=== PATIENT | male | born 1950 | race Caucasian/White ===

== ENCOUNTER 2017-01-14 11:34 | Observation (INO) | payer OTHER ==
[~2017-01-14] VITALS: Ht 185.4 cm; Wt 90.0 kg
[~2017-01-14 11:34] MED LIST: RANI150 PO
[2017-01-14 11:35] VITALS: BP 127/77; PULSE 98; RESP 20; TEMP 98.2; O2SAT 95
[2017-01-14 11:44] VITALS: O2SAT 96
--- NOTE | 2017-01-14 11:44 | PD ---
HPI Chief Complaint: cardiac complaint Time Seen by Provider: 11:44 Travel History International Travel<30 days: No Contact w/Intl Traveler<30days: No Traveled to known affect area: No History of Present Illness HPI 66-year-old male with history of cardiac disease with stent placement on April 2016, presents the emergency department with 15 minute episode of diaphoresis and nausea this morning at approximately 8 AM while attempting intercourse with his . Patient denies taking erectile dysfunction medications. He states currently he is pain-free, but feels somewhat lightheaded. Patient states he had no chest pain or tightness during this episode. He states similar symptoms when he had his first heart attack last year. 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 Venegas, and had a sestamibi stress test beginning of October which patient reports was read as normal. Patient takes an aspirin a day as well as Lipitor, and isosorbide. Patient also has a history of COPD for which she takes Spiriva, although the patient states he still occasionally has a cigarette. Patient has no known drug allergies. PFSH Past Medical History Hypertension: Yes Social History Alcohol Use: Yes (DAILY JUST A COUPLE) Tobacco Use: Yes (PACK TO A PACK AND A HALF DAILY) Allergies-Medications (Allergen,Severity, Reaction): Coded Allergies: No Known Allergies (Verified , 07/02/11) Reported Meds & Prescriptions Reported Meds & Active Scripts Active Reported Spiriva Handihaler (Tiotropium Inh) 18 Mcg Cap 18 Mcg INH DAILY 1 capsule = 18 mcg Brilinta (Ticagrelor) 60 Mg Tab 60 Mg PO BID Nitroglycerin SL (Nitroglycerin) 0.4 Mg Subl 0.4 Mg SL DIRECTED PRN ONE TABLET UNDER THE TONGUE NEEDED FOR CHEST PAIN, MAY REPEAT EVERY FIVE MINUTES FOR A TOTAL OF 3 DOSES OR CALL 911 IF NO RELIEF Metoprolol Succinate ER 24 HR (Metoprolol Succinate) 50 Mg Tab 50 Mg PO DAILY Isosorbide Mononitrate 10 Mg Tab 10 Mg PO BID Take 2 doses 7 hours apart. Losartan-Hydrochlorothiazide 50-12.5 Mg Tab 1 Tab PO DAILY Atorvastatin (Atorvastatin Calcium) 40 Mg Tab 40 Mg PO HS Aspirin 81 Mg Chew 81 Mg CHEW DAILY Ventolin Hfa 18 GM Inh (Albuterol Sulfate) 90 Mcg/Act Aer 2 Puff INH BID PRN Physical Exam Narrative GENERAL: Patient appears mildly anxious otherwise no acute distress. SKIN: Warm and dry. Normal color. Normal turgor. No diaphoresis currently. HEAD: Atraumatic. Normocephalic. EYES: Pupils equal and round. No scleral icterus. No injection or drainage. ENT: No nasal bleeding or discharge. Mucous membranes pink and moist. Pharynx is clear. NECK: Trachea midline. No JVD. Supple and nontender. CARDIOVASCULAR: Regular rate and rhythm. No murmurs gallops or rubs. RESPIRATORY: No accessory muscle use. Clear to auscultation. Breath sounds equal bilaterally. MUSCULOSKELETAL: Extremities without clubbing, cyanosis, or edema. No obvious deformities. NEUROLOGICAL: Awake and alert. No obvious cranial nerve deficits. Motor grossly within normal limits. Five out of 5 muscle strength in the arms and legs. Normal speech. PSYCHIATRIC: Appropriate mood and affect; insight and judgment normal. Data Data Last Documented VS Vital Signs Date Time Temp Pulse Resp B/P Pulse Ox O2 Delivery O2 Flow Rate FiO2 01/14/17 11:44 17 01/14/17 11:44 96 Room Air 01/14/17 11:35 98.2 98 127/77 Orders Electrocardiogram (01/14/17 ) Electrocardiogram (01/14/17 11:47) B-Type Natriuretic Peptide (01/14/17 11:47) Ckmb (Isoenzyme) Profile (01/14/17 11:47) Complete Blood Count With Diff (01/14/17 11:47) Comprehensive Metabolic Panel (01/14/17 11:47) Magnesium (Mg) (01/14/17 11:47) Prothrombin Time / Inr (Pt) (01/14/17 11:47) Act Partial Throm Time (Ptt) (01/14/17 11:47) Troponin I (01/14/17 11:47) Chest, Single Ap (01/14/17 11:47) Ecg Monitoring (01/14/17 11:47) Bilateral Bp Monitoring (01/14/17 11:47) Iv Access Insert/Monitor (01/14/17 11:47) Oximetry (01/14/17 11:47) Oxygen Administration (01/14/17 11:47) Aspirin Chew (Aspirin Chew) (01/14/17 12:00) Nitroglycerin 2% Oint (Nitroglycerin 2% (01/14/17 12:00) Sodium Chloride 0.9% Flush (Ns Flush) (01/14/17 12:00) Sodium Chlorid 0.9% 500 Ml Inj (Ns 500 M (01/14/17 12:00) Labs Laboratory Tests Test 01/14/17 12:00 White Blood Count 7.6 TH/MM3 Red Blood Count 4.10 MIL/MM3 Hemoglobin 14.8 GM/DL Hematocrit 43.3 % Mean Corpuscular Volume 105.5 FL Mean Corpuscular Hemoglobin 36.1 PG Mean Corpuscular Hemoglobin 34.2 % Concent Red Cell Distribution Width 13.4 % Platelet Count 115 TH/MM3 Mean Platelet Volume 8.3 FL Neutrophils (%) (Auto) 74.8 % Lymphocytes (%) (Auto) 16.7 % Monocytes (%) (Auto) 7.6 % Eosinophils (%) (Auto) 0.5 % Basophils (%) (Auto) 0.4 % Neutrophils # (Auto) 5.7 TH/MM3 Lymphocytes # (Auto) 1.3 TH/MM3 Monocytes # (Auto) 0.6 TH/MM3 Eosinophils # (Auto) 0.0 TH/MM3 Basophils # (Auto) 0.0 TH/MM3 CBC Comment DIFF FINAL Differential Comment Prothrombin Time 11.3 SEC Prothromb Time International 1.0 RATIO Ratio Activated Partial 23.6 SEC Thromboplast Time Sodium Level 139 MEQ/L Potassium Level 4.0 MEQ/L Chloride Level 102 MEQ/L Carbon Dioxide Level 27.1 MEQ/L Anion Gap 10 MEQ/L Blood Urea Nitrogen 17 MG/DL Creatinine 1.26 MG/DL Estimat Glomerular Filtration 57 ML/MIN Rate Random Glucose 138 MG/DL Calcium Level 9.7 MG/DL Magnesium Level 1.9 MG/DL Total Bilirubin 2.2 MG/DL Aspartate Amino Transf 54 U/L (AST/SGOT) Alanine Aminotransferase 63 U/L (ALT/SGPT) Alkaline Phosphatase 123 U/L Total Creatine Kinase 49 U/L Troponin I LESS THAN 0.02 NG/ML B-Type Natriuretic Peptide 17 PG/ML Total Protein 7.7 GM/DL Albumin 3.9 GM/DL [facility] Medical Decision Making Medical Screen Exam Complete: Yes Emergency Medical Condition: Yes Medical Record Reviewed: Yes Differential Diagnosis Near syncope event. Diaphoresis. Possible [place]. Possible cardiac syndrome. Narrative Course Patient is pain-free and appears medically stable at time of exam. Labs ordered including CMP, CBC, cardiac panel, proBNP, chest x-ray, and EKG. EKG shows diffuse ST depressions. This is reviewed with Dr. Weston. IV access is obtained and the patient is given 324 mg aspirin, as well as 1 inch 2% lidocaine paste topically. 1300 hrs. patient is reassessed and found to be stable and with no complaints. First set of labs are within normal limits. I discussed with the patient the recommendation to stay for the chest pain center to further evaluate his episode this morning. Patient agrees to be admitted into the chest pain center for observation and further evaluation. Orders for chest pain center admission are placed. Diagnosis Primary Impression: Atypical chest pain Admitting Information Admitting Physician Requests: Observation Condition: Stable Dimitrios Brewster January 14, 2017 11:44
[2017-01-14] MEDS ORDERED: METO50TA11 PO (11:51)
[2017-01-14] MEDS ORDERED: ATOR40TA16 PO (11:51)
[2017-01-14] MEDS ORDERED: SPIRCAP INH (11:51)
[2017-01-14] MEDS ORDERED: LOSA50TA2 PO (11:51)
[2017-01-14] MEDS ORDERED: VENTAER INH (11:51)
[2017-01-14] MEDS ORDERED: NITR1SUB3 SL (11:51)
[2017-01-14] MEDS ORDERED: ISOS10TA3 PO (11:51)
[2017-01-14] MEDS ORDERED: ASPI81CH CHEW (11:51)
[2017-01-14] MEDS ORDERED: TICA1TAB PO (11:51)
[2017-01-14] MEDS ORDERED: ASPIRIN 81 MG CHEW TAB PO ONE (12:00)
[2017-01-14] MEDS ORDERED: NITROGLYCERIN 2% OINT 1 GM PACKET TOP ONE (12:00)
[2017-01-14] MEDS ORDERED: SODIUM CHLORIDE 0.9% FLUSH 10 ML FLUSH IVF PRN (12:00)
[2017-01-14] MEDS ORDERED: SODIUM CHLORID 0.9% 500 ML INJ 500 ML IV ONE (12:00)
[2017-01-14 12:15] LABS: AUTOMATED NEUTROPHIL # 5.7 TH/MM3 (1.8-7.7); BASOPHIL % 0.4 % (0.0-2.0); EOSINOPHIL % 0.5 % (0.0-4.0); HEMATOCRIT 43.3 % (39.0-51.0); HEMO FLAGS DIFF FINAL; LYMPH % 16.7 % (9.0-44.0); LYMPHOCYTE # 1.3 TH/MM3 (1.0-4.8); MEAN CELL VOLUME 105.5 FL (80.0-100.0); MEAN CORPUSCULAR HEMOGLOBIN 36.1 PG (27.0-34.0); MEAN CORPUSCULAR HGB CONC 34.2 % (32.0-36.0); MONO % 7.6 % (0.0-8.0); NEUT % 74.8 % (16.0-70.0); PLATELET COUNT 115 TH/MM3 (150-450); RED CELL DISTRIBUTION WIDTH 13.4 % (11.6-17.2); WHITE BLOOD COUNT 7.6 TH/MM3 (4.0-11.0)
[2017-01-14 12:24] LABS: APTT (PATIENT) 23.6 SEC (24.3-30.1); PROTHROMBIN TIME - PATIENT 11.3 SEC (9.8-11.6)
[2017-01-14 12:36] LABS: ANION GAP 10 MEQ/L (5-15); AST (GOT) 54 U/L (15-37); BICARBONATE 27.1 MEQ/L (21.0-32.0); BLOOD UREA NITROGEN 17 MG/DL (7-18); CHLORIDE 102 MEQ/L (98-107); GLOMERULAR FILTRATION RATE 57 ML/MIN (>89); MAGNESIUM 1.9 MG/DL (1.5-2.5); SODIUM (NA) 139 MEQ/L (136-145)
[2017-01-14 12:41] LABS: ALKALINE PHOSPHATASE 123 U/L (45-117); ALT (GPT) 63 U/L (12-78); TOTAL BILIRUBIN ADULT 2.2 MG/DL (0.2-1.0)
--- NOTE | 2017-01-14 12:43 | RADRPT ---
EXAM DATE/TIME: 01/14/2017 12:18 [facility] COMPARISON: No previous studies available for comparison. INDICATIONS : Shortness of breath and nausea. MEDICAL HISTORY : Myocardial infarction. SURGICAL HISTORY : 1 Heart stent. ENCOUNTER: Initial ACUITY: 1 day PAIN SCORE: 0/10 LOCATION: Bilateral chest FINDINGS: Portable AP view of the chest demonstrates a normal-sized cardiac silhouette. No effusion, consolidat ion, or pneumothorax is visualized. The bones and soft tissues demonstrate no acute abnormality. EKG lines overlie the patient. CONCLUSION: No acute cardiopulmonary abnormality is identified. Mehul Santiago MD on January 14, 2017 at 12:40 Board Certified Radiologist. This report was verified electronically.
[2017-01-14 13:01] LABS: CREATINE KINASE 49 U/L (39-308)
--- NOTE | 2017-01-14 13:13 | PD ---
Data Data Last Documented VS Vital Signs Date Time Temp Pulse Resp B/P Pulse Ox O2 Delivery O2 Flow Rate FiO2 01/14/17 11:44 17 01/14/17 11:44 96 Room Air 01/14/17 11:35 98.2 98 127/77 Orders Electrocardiogram (01/14/17 ) Electrocardiogram (01/14/17 11:47) B-Type Natriuretic Peptide (01/14/17 11:47) Ckmb (Isoenzyme) Profile (01/14/17 11:47) Complete Blood Count With Diff (01/14/17 11:47) Comprehensive Metabolic Panel (01/14/17 11:47) Magnesium (Mg) (01/14/17 11:47) Prothrombin Time / Inr (Pt) (01/14/17 11:47) Act Partial Throm Time (Ptt) (01/14/17 11:47) Troponin I (01/14/17 11:47) Chest, Single Ap (01/14/17 11:47) Ecg Monitoring (01/14/17 11:47) Bilateral Bp Monitoring (01/14/17 11:47) Iv Access Insert/Monitor (01/14/17 11:47) Oximetry (01/14/17 11:47) Oxygen Administration (01/14/17 11:47) Aspirin Chew (Aspirin Chew) (01/14/17 12:00) Nitroglycerin 2% Oint (Nitroglycerin 2% (01/14/17 12:00) Sodium Chloride 0.9% Flush (Ns Flush) (01/14/17 12:00) Sodium Chlorid 0.9% 500 Ml Inj (Ns 500 M (01/14/17 12:00) Labs Laboratory Tests Test 01/14/17 12:00 White Blood Count 7.6 TH/MM3 Red Blood Count 4.10 MIL/MM3 Hemoglobin 14.8 GM/DL Hematocrit 43.3 % Mean Corpuscular Volume 105.5 FL Mean Corpuscular Hemoglobin 36.1 PG Mean Corpuscular Hemoglobin 34.2 % Concent Red Cell Distribution Width 13.4 % Platelet Count 115 TH/MM3 Mean Platelet Volume 8.3 FL Neutrophils (%) (Auto) 74.8 % Lymphocytes (%) (Auto) 16.7 % Monocytes (%) (Auto) 7.6 % Eosinophils (%) (Auto) 0.5 % Basophils (%) (Auto) 0.4 % Neutrophils # (Auto) 5.7 TH/MM3 Lymphocytes # (Auto) 1.3 TH/MM3 Monocytes # (Auto) 0.6 TH/MM3 Eosinophils # (Auto) 0.0 TH/MM3 Basophils # (Auto) 0.0 TH/MM3 CBC Comment DIFF FINAL Differential Comment Prothrombin Time 11.3 SEC Prothromb Time International 1.0 RATIO Ratio Activated Partial 23.6 SEC Thromboplast Time Sodium Level 139 MEQ/L Potassium Level 4.0 MEQ/L Chloride Level 102 MEQ/L Carbon Dioxide Level 27.1 MEQ/L Anion Gap 10 MEQ/L Blood Urea Nitrogen 17 MG/DL Creatinine 1.26 MG/DL Estimat Glomerular Filtration 57 ML/MIN Rate Random Glucose 138 MG/DL Calcium Level 9.7 MG/DL Magnesium Level 1.9 MG/DL Total Bilirubin 2.2 MG/DL Aspartate Amino Transf 54 U/L (AST/SGOT) Alanine Aminotransferase 63 U/L (ALT/SGPT) Alkaline Phosphatase 123 U/L Total Creatine Kinase 49 U/L Troponin I LESS THAN 0.02 NG/ML B-Type Natriuretic Peptide 17 PG/ML Total Protein 7.7 GM/DL Albumin 3.9 GM/DL MDM Supervised Visit with JOSE: Yes Narrative Course The history, exam, and medical decision-making in the associated mid-level provider note were completed with my assistance. I reviewed and agree with the findings presented. I attest that I had a [id number] encounter with the patient on the same day, and personally performed and documented my assessment and findings in the medical record. *My assessment and Findings: 66-year-old man, acute onset nausea and diaphoresis during sex today. He had [place] with previous similar symptoms. No chest pain. No syncope. Improved now. Initial workups unremarkable. Last stress test was in October of this year with Dr. Grossman. We'll plan on admission to chest pain Center for serial cardiac enzymes, provocative testing at their discretion. Diagnosis Primary Impression: Atypical chest pain Condition: Stable Isauro Weston MD January 14, 2017 13:13
[2017-01-14] MEDS ORDERED: SODIUM CHLORIDE 0.9% FLUSH 5 ML FLUSH IVF PRN (14:15)
--- NOTE | 2017-01-14 14:29 | HHI.HP ---
[facility] Primary Care Physician Joe Escobar M.D. Chief Complaint Nausea and diaphoresis History of Present Illness This is a 66-year-old male with history of CAD requiring stenting April 2016 while in [facility]. He presents today with a complaint of nausea and diaphoresis while having intercourse with his . He states that his symptoms resolved about 10 minutes after stopping intercourse. He denies taking any medications for erectile dysfunction. He is concerned stating " these are the same symptoms I had when I had a heart attack." He called 911 and was brought to the ED. Symptoms have not recurred. He follows Dr. Grossman of cardiology. States he had a chemical stress test 2 months ago and was told that it was normal. 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 He states he has not had these symptoms since getting the stent in April. Patient continues to smoke cigarettes. He does voice compliance with all his medications including brillanta. Currently asymptomatic. Denies abdominal pain or vomiting. Review of Systems General: Patient denies fevers, chills recent, and recent travel HEENT: Patient denies headache, sore throat, difficulty swallowing. Cardiovascular: Denies chest discomfort but voices the symptoms of diaphoresis and nausea that were similar to when eating his stent April 2016. Denies sensation of heart beating rapidly or irregularly. No syncope. There was diaphoresis. Respiratory: He was a little short of breath. Denies inspirational chest discomfort. Denies coughing wheezing or hemoptysis. GI: He was nauseous. Patient denies vomiting, diarrhea, abdominal pain, bloody stools. Musculoskeletal: Patient denies joint pain or edema. Denies calf pain or edema. Neurovascular: Patient denies numbness, tingling, weakness in extremities. Denies headache. Endocrine: Denies polyuria and polydipsia. Hematologic: Denies easy bruising. Skin: Denies rash or itching. Past Family Social History Allergies: Coded Allergies: No Known Allergies (Verified , 07/02/11) Past Medical History Coronary artery disease with stenting April 2016 in [facility]. It sounds as if he was a STEMI alert as he went emergently to the [facility] from the ED. Hypertension, hyperlipidemia, tobacco abuse. Denies diabetes. Past Surgical History Cardiac catheterization April 2016 with stent. Knee surgery. Reported Medications Reported Meds & Active Scripts Active Reported Spiriva Handihaler (Tiotropium Inh) 18 Mcg Cap 18 Mcg INH DAILY 1 capsule = 18 mcg Brilinta (Ticagrelor) 60 Mg Tab 60 Mg PO BID Nitroglycerin SL (Nitroglycerin) 0.4 Mg Subl 0.4 Mg SL DIRECTED PRN ONE TABLET UNDER THE TONGUE NEEDED FOR CHEST PAIN, MAY REPEAT EVERY FIVE MINUTES FOR A TOTAL OF 3 DOSES OR CALL 911 IF NO RELIEF Metoprolol Succinate ER 24 HR (Metoprolol Succinate) 50 Mg Tab 50 Mg PO DAILY Isosorbide Mononitrate 10 Mg Tab 10 Mg PO BID Take 2 doses 7 hours apart. Losartan-Hydrochlorothiazide 50-12.5 Mg Tab 1 Tab PO DAILY Atorvastatin (Atorvastatin Calcium) 40 Mg Tab 40 Mg PO HS Aspirin 81 Mg Chew 81 Mg CHEW DAILY Ventolin Hfa 18 GM Inh (Albuterol Sulfate) 90 Mcg/Act Aer 2 Puff INH BID PRN Active Ordered Medications Current Medications Medications (Trade) Dose Ordered Sig/Blanca Route Start Time Stop Time Status Last Admin (NS Flush) 2 ml UNSCH PRN IVF 01/14/17 12:00 (Lipitor) 40 mg HS PO 01/14/17 21:00 (Toprol Xl) 50 mg DAILY PO 01/14/17 14:00 (Cozaar) 50 mg DAILY PO 01/14/17 15:00 (Microzide) 12.5 mg DAILY PO 01/14/17 15:00 (NS Flush) 2 ml UNSCH PRN IVF 01/14/17 14:15 UNV (NS Flush) 2 ml BID IVF 01/14/17 21:00 UNV (Tylenol) 500 mg Q4H PRN PO 01/14/17 14:15 UNV ([place] 7.5-325 Mg) 1 tab Q4H PRN PO 01/14/17 14:15 UNV (Zofran Inj) 4 mg Q6H PRN IV 01/14/17 14:15 UNV (Protonix) 40 mg DAILY PO 01/14/17 14:15 UNV (Aspirin) 325 mg DAILY PO 01/15/17 09:00 UNV (Xanax) 0.25 mg Q8H PRN PO 01/14/17 14:15 UNV Family History Denies family history of CAD. Social History Patient continues to smoke. He has been smoking one half pack of cigarettes daily for the last 5 months but prior that he is smoking 1-1/2 pack of cigarettes daily for 40 years. He drinks 3-4 cups of bourbon daily. Denies illicit drugs. He has been for 44 years. Physical Exam Vital Signs Vital Signs Date Time Temp Pulse Resp B/P Pulse Ox O2 Delivery O2 Flow Rate FiO2 01/14/17 11:44 17 01/14/17 11:44 96 Room Air 01/14/17 11:44 96 Room Air 01/14/17 11:35 98.2 98 20 127/77 95 Room Air Physical Exam GENERAL: This is a well-nourished, well-developed patient, in no apparent distress. Patient speaks in clear complete sentences. Patient is pleasant. HEENT: Head is atraumatic and normocephalic. Neck is supple without lymphadenopathy and trachea is midline. No JVD or carotid bruits. CARDIOVASCULAR: Regular rate and rhythm without murmurs, gallops, or rubs. RESPIRATORY: Clear to auscultation. Breath sounds equal bilaterally. No wheezes , rales, or rhonchi. Chest wall is nontender. No use of accessory muscles. GASTROINTESTINAL: Abdomen is nontender, nondistended. Abdomen soft. No obvious pulsatile mass or bruit. No CVA tenderness. Strong femoral pulses bilaterally. Normal bowel sounds in all quadrants. MUSCULOSKELETAL: Patient is moving upper and lower extremities freely. No calf tenderness or edema, no Homans sign. Strong pulses in upper and lower extremities. NEUROLOGICAL: Patient is alert and oriented. Cranial nerves 2-12 are grossly intact. No focal deficits and speech is clear. SKIN: No rash and turgor is normal. Laboratory Laboratory Tests Test 01/14/17 12:00 White Blood Count 7.6 Red Blood Count 4.10 Hemoglobin 14.8 Hematocrit 43.3 Mean Corpuscular Volume 105.5 Mean Corpuscular Hemoglobin 36.1 Mean Corpuscular Hemoglobin 34.2 Concent Red Cell Distribution Width 13.4 Platelet Count 115 Mean Platelet Volume 8.3 Neutrophils (%) (Auto) 74.8 Lymphocytes (%) (Auto) 16.7 Monocytes (%) (Auto) 7.6 Eosinophils (%) (Auto) 0.5 Basophils (%) (Auto) 0.4 Neutrophils # (Auto) 5.7 Lymphocytes # (Auto) 1.3 Monocytes # (Auto) 0.6 Eosinophils # (Auto) 0.0 Basophils # (Auto) 0.0 CBC Comment DIFF FINAL Differential Comment Prothrombin Time 11.3 Prothromb Time International 1.0 Ratio Activated Partial 23.6 Thromboplast Time Sodium Level 139 Potassium Level 4.0 Chloride Level 102 Carbon Dioxide Level 27.1 Anion Gap 10 Blood Urea Nitrogen 17 Creatinine 1.26 Estimat Glomerular Filtration 57 Rate Random Glucose 138 Calcium Level 9.7 Magnesium Level 1.9 Total Bilirubin 2.2 Aspartate Amino Transf 54 (AST/SGOT) Alanine Aminotransferase 63 (ALT/SGPT) Alkaline Phosphatase 123 Total Creatine Kinase 49 Troponin I LESS THAN 0.02 B-Type Natriuretic Peptide 17 Total Protein 7.7 Albumin 3.9 Result Diagram: 01/14/17 1200 01/14/17 1200 Imaging Last Impressions Chest X-Ray 01/14/17 1147 Signed Impressions: Service Date/Time: Saturday, January 14, 2017 12:18 - CONCLUSION: No acute cardiopulmonary abnormality is identified. Mehul Santiago MD Course Initial EKG is sinus rhythm with nonspecific ST depressions inferiorly and laterally. Assessment and Plan Assessment and Plan * Possible angina equivalent: Patient presents to ED with symptoms that he states are similar to when eating stenting in April 2016. He will have serial cardiac enzymes and EKGs for ruling out purposes. We will resume his medications. Will apply Nitrol ointment. He will be seen by Dr. Macario Fisher and at that time further plan will be determined. * CAD: This will be reassessed this visit. He will need to follow-up with Dr. Grossman. * Hypertension: Continue current medication. * Hyperlipidemia: Continue current medication. * Tobacco abuse: Patient has been counseled on the importance of smoking cessation. Patient is agreeable to this plan. Sergio Stapleton January 14, 2017 14:29
[2017-01-14 14:37] VITALS: BP 122/64; PULSE 79; RESP 16; TEMP 98.1; O2SAT 95
[2017-01-14] MEDS ORDERED: ONDANSETRON HCL 4 MG/2 ML VIAL IV PRN (15:00)
[2017-01-14] MEDS ORDERED: ACETAMINOPHEN/HYDROcodone 325 MG/7.5 MG TAB PO PRN (15:00)
[2017-01-14] MEDS ORDERED: ACETAMINOPHEN 500 MG CPLT PO PRN (15:00)
[2017-01-14] MEDS ORDERED: ALPRAZolam 0.25 MG TAB PO PRN (15:00)
[2017-01-14 16:14] LABS: CREATINE KINASE 40 U/L (39-308)
[2017-01-14] MEDS ORDERED: ISOS30TA3 PO (16:40)
[2017-01-14] MEDS: METOPROLOL SUCCINATE 50 MG EXTENDED RELEASE TAB PO SCH (16:44)
[2017-01-14] MEDS: HYDROCHLOROTHIAZIDE 12.5 MG CAP PO SCH (16:44)
[2017-01-14] MEDS: PANTOPRAZOLE SOD 40 MG DELAYED RELEASE TAB PO SCH (16:45)
[2017-01-14] MEDS: LOSARTAN 50 MG TAB PO SCH (16:45)
[2017-01-14] MEDS ORDERED: RESP: ALBUTEROL 2.5 MG/IPRATROPIUM 0.5 MG NEB (PRN) INH (17:00)
[2017-01-14 17:18] VITALS: PULSE 68
[2017-01-14] MEDS: NITROGLYCERIN 2% OINT 1 GM PACKET TOPICAL SCH (18:15)
[2017-01-14 18:49] LABS: CREATINE KINASE 39 U/L (39-308)
[2017-01-14 20:12] VITALS: BP 129/68; PULSE 62; RESP 18; TEMP 98.1; O2SAT 97
[2017-01-14] MEDS: TICAGRELOR 60 MG TAB PO SCH (20:15)
[2017-01-14] MEDS: ISOSORBIDE MONONITRATE 30 MG TAB PO SCH (20:18)
[2017-01-14 20:20] VITALS: PULSE 65
[2017-01-14] MEDS ORDERED: ATORVASTATIN 40 MG TAB PO SCH (21:00)
[2017-01-14] MEDS ORDERED: SODIUM CHLORIDE 0.9% FLUSH 5 ML FLUSH IVF SCH (21:00)
[2017-01-15 00:08] VITALS: BP 109/72; PULSE 63; RESP 20; TEMP 97.8; O2SAT 95
[2017-01-15] MEDS: NITROGLYCERIN 2% OINT 1 GM PACKET TOPICAL SCH ×2 (00:14→06:24)
[2017-01-15 04:32] VITALS: BP 106/63; PULSE 61; RESP 20; TEMP 97.8; O2SAT 94
[2017-01-15 07:06] VITALS: O2SAT 96
[2017-01-15 07:25] VITALS: BP 111/75; PULSE 62; RESP 18; TEMP 98.1; O2SAT 96
[2017-01-15 08:00] VITALS: PULSE 68
--- NOTE | 2017-01-15 08:05 | EKG ---
Date Performed: 01/14/2017 Time Performed: 15:06:04 PTAGE: 66 years EKG: Sinus rhythm NORMAL ECG Since PREVIOUS TRACING , no significant change noted PREVIOUS TRACIN01/14/2017 11.44 DOCTOR: Tabitha Mohan Interpretating Date/Time 01/15/2017 08:04:01
--- NOTE | 2017-01-15 08:05 | EKG ---
Date Performed: 01/14/2017 Time Performed: 18:03:59 PTAGE: 66 years EKG: Sinus rhythm NORMAL ECG Since PREVIOUS TRACING , no significant change noted PREVIOUS TRACIN01/14/2017 15.06 DOCTOR: Tabitha Mohan Interpretating Date/Time 01/15/2017 08:03:38
--- NOTE | 2017-01-15 08:06 | EKG ---
Date Performed: 01/14/2017 Time Performed: 11:44:01 PTAGE: 66 years EKG: Sinus rhythm MINIMAL ST DEPRESSION BORDERLINE ECG Since PREVIOUS TRACING , no significant change noted PREVIOUS TRACIN07/02/2011 20.02 DOCTOR: Tabitha Mohan Interpretating Date/Time 01/15/2017 08:04:43
[2017-01-15] MEDS ORDERED: ASPIRIN 325 MG TAB PO SCH (09:00)
--- NOTE | 2017-01-15 11:05 | RADRPT ---
EXAM DATE/TIME: 01/15/2017 08:59 [facility] COMPARISON: No previous studies available for comparison. INDICATIONS : Angina Coronary artery bypass graft. DOSE: 25.8 mCi Tc99m Myoview at stress 8.7 mCi Tc99m Myoview at rest REST HEART RATE: 84 BPM TARGET HEART RATE: 131 BPM MAX HEART RATE: 124 BPM REST BLOOD PRESSURE: 118/78 mmHg MAX BLOOD PRESSURE: 138/80 mmHg EJECTION FRACTION: 54% MEDICAL HISTORY : Hypertension. Myocardial infarction. Current smoker. SURGICAL HISTORY : Coronary artery stent. Right shoulder and knee surgery. ENCOUNTER: Initial ACUITY: 1 day PAIN SCALE: 3/10 LOCATION: Bilateral chest TECHNIQUE: The patient underwent upright treadmill exercise in the chest pain center. Continuous ECG tracing wa s monitored during stress. Gated SPECT imaging was performed after stress, and conventional SPECT im aging was performed at rest. The examination was performed on a SPECT/CT scanner, both attenuation-c orrected and non-corrected datasets were reviewed. FINDINGS: DISTRIBUTION: The maximum perfused segment at stress is in the lateral wall. PERFUSION STUDY: The pattern of perfusion at stress is within normal limits. GATED STUDY: There is intact wall motion and thickening without hypokinetic or dyskinetic segments. CONCLUSION: Unremarkable myocardial perfusion examination. RISK CATEGORY: Low Calderon Ruiz MD on January 15, 2017 at 11:02 Board Certified Radiologist. This report was verified electronically.
[2017-01-15] MEDS: TICAGRELOR 60 MG TAB PO SCH (11:32)
[2017-01-15] MEDS: LOSARTAN 50 MG TAB PO SCH (11:32)
[2017-01-15] MEDS: HYDROCHLOROTHIAZIDE 12.5 MG CAP PO SCH (11:33)
[2017-01-15] MEDS: ISOSORBIDE MONONITRATE 30 MG TAB PO SCH (11:33)
--- NOTE | 2017-01-15 11:33 | HHI.DCPOC ---
Discharge Care Plan Diagnosis: (1) Atypical chest pain (2) Tobacco abuse (3) Hx of coronary artery disease Goals to Promote Your Health * To prevent worsening of your condition and complications * To maintain your health at the optimal level Directions to Meet Your Goals Take your medications as prescribed Follow your dietary instruction Follow activity as directed Keep your appointments as scheduled Take your immunizations and boosters as scheduled If your symptoms worsen call your PCP, if no PCP go to Urgent Care Center or Emergency Room Smoking is Dangerous to Your Health. Avoid second hand smoke Call the 24-hour hour crisis hotline for domestic abuse at Danii Barros January 15, 2017 11:33
[2017-01-15] MEDS: METOPROLOL SUCCINATE 50 MG EXTENDED RELEASE TAB PO SCH (11:46)
[2017-01-15] MEDS: PANTOPRAZOLE SOD 40 MG DELAYED RELEASE TAB PO SCH (11:47)
--- NOTE | 2017-01-15 15:15 | TR ---
Date Performed: 01/15/2017 Time Performed: 09:43:40 DOCTOR: Tabitha Mohan DRUG LIST: CLINICAL HISTORY: ATYPICAL CHEST PAIN REASON FOR TEST: REASON FOR ENDING: OBSERVATION: CONCLUSION: Modified gurpreet protocol. Stopped sec to leg fatigue and shortness of breath. Maximu m OI=426 Max HR Achieved=81.0% Total Exercise Time=6:02 Max BP 138/80. No reprod chest discomfort. R are PVC. No st t segment changes to sugg ischemia. Normal bp response. Fair exerice tolerance. Recove ry quick and unremarkable. Nuclear images pending. COMMENTS:
== END 2017-01-15 12:00 | disposition home or self-care (01) ==
LOC: NEPC 11:34 → NEDA 13:13 → NEPHCDU 14:34
PROVIDERS: ADMIT Internal Medicine Cardiovascular Disease; ATTEND Internal Medicine Cardiovascular Disease
DX: R07.89 Other chest pain (principal); R11.0 Nausea; R61 Generalized hyperhidrosis; R42 Dizziness and giddiness; R06.02 Shortness of breath; I20.9 Angina pectoris, unspecified; I10 Essential (primary) hypertension; I25.10 Atherosclerotic heart disease of native coronary artery without angina pectoris; E78.5 Hyperlipidemia, unspecified; J44.9 Chronic obstructive pulmonary disease, unspecified; F17.210 Nicotine dependence, cigarettes, uncomplicated; Z95.5 Presence of coronary angioplasty implant and graft; Z79.82 Long term (current) use of aspirin; Z79.899 Other long term (current) drug therapy
CPT/HCPCS: 71010; 78452; 80053; 82550; 83735; 83880; 84484; 85025; 85610; 85730; 93005; 93017; 96360; 99285; A9502; G0378; J7040

== ENCOUNTER 2018-10-09 22:25 | Inpatient (IN) ==
[2018-10-09] MEDS ORDERED: Sod Chloride 0.9% Inj 1,000 ML IV.SIG ONE (22:55)
[2018-10-09] MEDS ORDERED: Pantoprazole Inj 40 MG Vial IV.PUSH ONE (22:55)
[2018-10-09] MEDS ORDERED: Famotidine PF Inj 20 MG/2 ML Vial IV.PUSH ONE (22:55)
[2018-10-09] MEDS ORDERED: Tetanus/Diphtheria Toxoid Adult Vaccine Inj 0.5 ML Vial IM ONE (23:03)
--- NOTE | 2018-10-09 23:13 | ED ---
HPI General Chief Complaint: Syncope Stated Complaint: BP Complaint Time Seen by Provider: 10/09/18 22:42 Source: patient Mode of arrival: ambulatory Limitations: no limitations History of Present Illness HPI narrative: 68-year-old male with PMH of HLD, HTN, COPD, IA status post stenting presents to the ED via EMS after syncopal episode approximately 20 minutes before arrival. His is at bedside, observe the event and states that the patient looked confused, become unresponsive, slumped out of his chair and hit his head on the ground. She states that within 40 seconds to a minute he was sitting up and responding though seemed dazed. Patient states that he has been feeling dizzy and has been dyspneic on exertion for the last few days. He states that he has had black stools for the last 2 days. He states that he drinks alcohol daily, endorses 3-4 drinks tonight. He denies any preceding palpitations, chest pain, shortness of breath, nausea or vomiting. He denies history of GI bleed. He states that he had a colonoscopy within the last year. He does not take any blood thinners. He is unsure the date of his last tetanus immunization. On presentation he complains of neck and back pain, diffuse, rated 7/10, worsened by touch and certain motions. He denies abdominal pain, limitations to range of motion of the extremities. Patient is agreeable to blood transfusion should that be necessary. No treatment attempted before arrival. Related Data Home Medications Medication Instructions Recorded Confirmed albuterol sulfate 2 puff INHALATION QID 09/01/18 10/09/18 aspirin 81 mg PO DAILY 09/01/18 10/09/18 atorvastatin 40 mg PO QPM 09/01/18 10/09/18 isosorbide mononitrate 60 mg PO QAM 09/01/18 10/09/18 losartan-hydrochlorothiazide 1 tab PO DAILY 09/01/18 10/09/18 metoprolol tartrate 12.5 mg PO DAILY 09/01/18 10/09/18 tiotropium bromide 1 cap INHALATION DAILY 09/01/18 10/09/18 Allergies Allergy/AdvReac Type Severity Reaction Status Date / Time No Known Allergies Allergy Verified 10/09/18 22:33 Review of Systems ROS: all other systems reviewed are negative [facility] Family History Family History Other No cardiac disease Social History Social History Substance History: No History of Abuse Second Hand Smoke Exposure: No Smoking Status: Never smoker How Often Do You Have a Drink Containing Alcohol: 4 or more times a week Recent Travel in [facility] within the Last 8 Weeks: No Recent Out of Country Travel within the Last 8 Weeks: No Immunization History Tetanus Immunization: >5 Years Exam Narrative Exam Narrative: GENERAL: Well-nourished, well-developed white male in no acute distress. Sitting up in the stretcher. GCS 15. A and O x3. SKIN: Warm and dry. 1 cm laceration in the right eyebrow. No active bleeding. Thorough evaluation reveals no other edema, ecchymosis, abrasion, or laceration of the skin. HEAD: Normocephalic. Atraumatic. No raccoon eyes or ariza sign. No tenderness to palpation of the skull. No bony step-offs. No malocclusion of the teeth. EYES: No scleral icterus. No injection or drainage. PERRLA. EOMI. ENT: Pearly noe tympanic membrane is bilaterally. Nasal mucosa is moist. Oropharynx without erythema, edema or exudate. NECK: Supple, trachea midline. No JVD or lymphadenopathy. No midline tenderness to palpation. Patient retains full, active, painless range of motion of the neck. CARDIOVASCULAR: Regular rate and rhythm without murmurs, gallops, or rubs. 2+ DP and radial pulses bilaterally. RESPIRATORY: Breath sounds clear and equal bilaterally. No accessory muscle use. GASTROINTESTINAL: Abdomen soft, non-tender, nondistended. No palpable masses. + Bowel sounds RECTAL EXAM: No masses or tenderness, stool is black, guaiac positive. MUSCULOSKELETAL: No cyanosis, or edema. No tenderness to palpation or limitations to range of motion of the joints of the upper and lower extremities bilaterally. NEUROLOGICAL: Awake and alert. Cranial nerves II through XII intact. Motor and sensory grossly within normal limits. 5/5 muscle strength in all muscle groups. Normal speech. BACK: Nontender without obvious deformity. No CVA tenderness. No midline tenderness. Procedures Hemaprompt Stool Procedural Steps Taken: specimen placed in appropriate test area and controls appropriately positive and negative Hemaprompt Stool Result: positive Additional Comments: Stool is frankly melanotic Laceration Laceration 1: Site: face Side (If applicable): left Size (cm): 1 Description: linear Depth: simple, single layer Pre-repair:: wound explored, irrigated extensively and deep structures intact Skin layer closed with: dermabond Course Initial Documented Vital Signs Pulse Rate 80 10/09/18 22:33 Respiratory Rate 20 10/09/18 22:33 Blood Pressure 103/51 L 10/09/18 22:33 Pulse Oximetry 100 10/09/18 22:33 Last Documented Vital Signs Pulse Rate 81 10/10/18 00:49 Respiratory Rate 24 10/10/18 00:49 Blood Pressure 102/53 L 10/10/18 00:49 Pulse Oximetry 98 10/10/18 00:49 Medical Decision Making JOSE Attestation JOSE supervised visit: Yes Attestation: I, Dr. Blanco, have reviewed the advance practice practitioner's documentation and am in agreement, met with the patient face to face, made the diagnosis, and the medical decision making was done by me. *My assessment and Findings: 68 yo M with GI bleed arrives following syncope episode. pmh includes cad, htn, hld, copd. pt assessed at 0100AM. found to be resting comfortably. results of work up discussed with patient. GENERAL: Well-nourished well-developed 68-year-old male no acute distress resting comfortably SKIN: Focused skin assessment warm/dry. HEAD: Atraumatic. Normocephalic. EYES: Pupils equal and round. No scleral icterus. No injection or drainage. ENT: No nasal bleeding or discharge. Mucous membranes pink and moist. NECK: Trachea midline. No JVD. CARDIOVASCULAR: Regular rhythm. Rate approximately 80. RESPIRATORY: Speaking clear sentences. Respiratory rate 24 NEUROLOGICAL: Awake and alert. No obvious cranial nerve deficits. Motor grossly within normal limits. Normal speech. PSYCHIATRIC: Appropriate mood and affect; insight and judgment normal. Hb 13.0 in August and 11.9 on today's BUN/Cr approx 50/1.5 Pt guaiac positive pt reports that dr jo moss [facility] is pt's gi md, colonoscopy was done in may 2018. pt requests records be obtained we'll get pt's signature in ed. MDM Narrative Medical decision making narrative: 68-year-old male with PMH HTN presents the ED for evaluation after syncopal episode. is at bedside and witnessed the episode. States loss of consciousness was brief. BP 103/51. Patient's alert, oriented, no focal neuro deficits, small laceration in the right eyebrow, abdominal exam unremarkable, frankly melanotic stools on exam. IV was established. Patient was administered Protonix bolus and drip. Tetanus immunization was updated. EKG without acute findings. CBC shows hemoglobin of 11.9, MCV 109.6. INR 1.2. CMP and tox screen pending. Plan to admit. Patient 's agreeable. Please see medicine notes for disposition. Medical Screen Exam Complete: Yes Emergency Medical Condition: Yes Differential Diagnosis Differential Diagnosis: GI bleed versus anemia versus need for tetanus immunization versus laceration versus contusion versus other Lab Data Result diagrams: 10/09/18 23:00 10/09/18 23:00 Lab Results 10/09/18 10/09/18 10/09/18 Range/Units 23:00 23:00 23:00 WBC 9.0 (4.0-11.0) th/mm3 RBC 3.18 L (4.50-5.90) mil/mm3 Hgb 11.9 L (13.0-17.0) gm/dL Hct 34.8 L (39.0-51.0) % MCV 109.6 H (80.0-100.0) fL MCH 37.3 H (27.0-34.0) pg MCHC 34.1 (32.0-36.0) % RDW 13.5 (11.6-17.2) % Plt Count 157 (150-450) th/mm3 MPV 8.5 (7.0-11.0) fL Neut % (Auto) 66.1 (16.0-70.0) % Lymph % (Auto) 24.8 (9.0-44.0) % Sheridan % (Auto) 7.7 (0.0-8.0) % Eos % (Auto) 0.7 (0.0-4.0) % Baso % (Auto) 0.7 (0.0-2.0) % Neut # (Auto) 6.0 (1.8-7.7) th/mm3 Lymph # (Auto) 2.2 (1.0-4.8) th/mm3 [place] # (Auto) 0.7 (0.0-0.9) th/mm3 Eos # (Auto) 0.1 (0.0-0.4) th/mm3 Baso # (Auto) 0.1 (0.0-0.2) th/mm3 WBC Differential . Differential Comment Auto diff final PT 11.9 H (9.8-11.6) sec INR 1.2 Ratio APTT 19.5 L (23.4-31.7) sec Sodium 140 (136-145) meq/L Potassium 3.6 (3.5-5.1) meq/L Chloride 105 (98-107) meq/L Carbon Dioxide 22.2 (21.0-32.0) meq/L Anion Gap 13 (5-15) meq/L BUN 51 H (7-18) mg/dL Creatinine 1.56 H (0.60-1.30) mg/dL Estimated GFR 44 L (>89) mL/min Random Glucose 88 (74-106) mg/dL Calcium 8.0 L (8.5-10.1) mg/dL Total Bilirubin 0.8 (0.2-1.0) mg/dL AST 38 H (15-37) U/L ALT 36 (12-78) U/L Alkaline Phosphatase 80 (45-117) U/L Troponin I (0.02-0.05) ng/mL Total Protein 6.3 L (6.4-8.2) g/dL Albumin 3.3 L (3.4-5.0) g/dL Lipase 168 (73-393) U/L Serum Alcohol 139 H (0-5) mg/dL Blood Type Blood Type Recheck Antibody Screen 10/09/18 10/09/18 Range/Units 23:00 23:00 WBC (4.0-11.0) th/mm3 RBC (4.50-5.90) mil/mm3 Hgb (13.0-17.0) gm/dL Hct (39.0-51.0) % MCV (80.0-100.0) fL MCH (27.0-34.0) pg MCHC (32.0-36.0) % RDW (11.6-17.2) % Plt Count (150-450) th/mm3 MPV (7.0-11.0) fL Neut % (Auto) (16.0-70.0) % Lymph % (Auto) (9.0-44.0) % [place]idan % (Auto) (0.0-8.0) % Eos % (Auto) (0.0-4.0) % Baso % (Auto) (0.0-2.0) % Neut # (Auto) (1.8-7.7) th/mm3 Lymph # (Auto) (1.0-4.8) th/mm3 [place]idan # (Auto) (0.0-0.9) th/mm3 Eos # (Auto) (0.0-0.4) th/mm3 Baso # (Auto) (0.0-0.2) th/mm3 WBC Differential Differential Comment PT (9.8-11.6) sec INR Ratio APTT (23.4-31.7) sec Sodium (136-145) meq/L Potassium (3.5-5.1) meq/L Chloride (98-107) meq/L Carbon Dioxide (21.0-32.0) meq/L Anion Gap (5-15) meq/L BUN (7-18) mg/dL Creatinine (0.60-1.30) mg/dL Estimated GFR (>89) mL/min Random Glucose (74-106) mg/dL Calcium (8.5-10.1) mg/dL Total Bilirubin (0.2-1.0) mg/dL AST (15-37) U/L ALT (12-78) U/L Alkaline Phosphatase (45-117) U/L Troponin I Less than 0.02 L (0.02-0.05) ng/mL Total Protein (6.4-8.2) g/dL Albumin (3.4-5.0) g/dL Lipase (73-393) U/L Serum Alcohol (0-5) mg/dL Blood Type A Positive Blood Type Recheck Required Antibody Screen Negative Imaging Data Radiologist's impression: Cervical Spine CT 10/09/18 23:03 CONCLUSION: 1. No fracture or dislocation. 2. Mild degenerative changes. 3. Calcified plaque involving the carotid arteries. Head CT 10/09/18 23:03 CONCLUSION: 1. No acute intracranial abnormality. . . ECG Data EKG Prior to Arrival: No Attestation: I personally reviewed and interpreted this ECG as follows: Interpretation: Rate 81, sinus rhythm. No acute ST changes. Reviewed by Dr. Blanco. Discharge Plan Discharge Disposition Patient Disposition: ED Admit(ED Internal Use Only) Discharge Order Discharge Orders: ED Use Only Admit Order (Routine); Ordered 10/10/18 Ordered By: Stacy Judge Physicians Team ED Provider: Brian Blanco ED Midlevel Provider: Stacy Judge Primary Care Provider: UNKNOWN, Attending Provider: Lorrie Downey Other Providers: Jerry Maza V ; [employer] Status ED Status: Admitted Observation Patient
[2018-10-09 23:21] LABS: Baso # (Auto) 0.1 th/mm3 (0.0-0.2); Baso % (Auto) 0.7 % (0.0-2.0); Eos # (Auto) 0.1 th/mm3 (0.0-0.4); Eos % (Auto) 0.7 % (0.0-4.0); Hematocrit 34.8 % (39.0-51.0); Hemoglobin 11.9 gm/dL (13.0-17.0); Lymph # (Auto) 2.2 th/mm3 (1.0-4.8); Lymph % (Auto) 24.8 % (9.0-44.0); Mean Corpuscular HGB Conc 34.1 % (32.0-36.0); Mean Corpuscular Hemoglobin 37.3 pg (27.0-34.0); Mean Corpuscular Volume 109.6 fL (80.0-100.0); Mean Platelet Volume 8.5 fL (7.0-11.0); Mono # (Auto) 0.7 th/mm3 (0.0-0.9); Mono % (Auto) 7.7 % (0.0-8.0); Neut % (Auto) 66.1 % (16.0-70.0); Platelet Count 157 th/mm3 (150-450); Red Blood Count 3.18 mil/mm3 (4.50-5.90); Red Cell Distribution Width 13.5 % (11.6-17.2)
--- NOTE | 2018-10-09 23:33 | CT ---
EXAM DATE: 10/09/2018 11:24 PM EST AGE/SEX: 68 years / Male INDICATIONS: Syncope. Fell and hit head on a chair. CLINICAL DATA: This is the patient's initial encounter. Patient reports that signs and symptoms have been present for 1 day and indicates a pain score of 4/10. MEDICAL/SURGICAL HISTORY: Hypertension. Myocardial infarction. Chronic obstructive pulmonary dise ase. Coronary artery stent. RADIATION DOSE: 66.34 CTDI (mGy) COMPARISON: No prior exams available for comparison. TECHNIQUE: CT of the head without contrast. Using automated exposure control and adjustment of the mA and/or kV according to patient size, radiation dose was kept as low as reasonably achievable to ob tain optimal diagnostic quality images. DICOM format image data is available electronically for revi ew and comparison. FINDINGS: Cerebrum: Small chronic lacunar infarction involving the right thalamus. The ventricles are normal f or age. No evidence of midline shift, mass lesion, hemorrhage or acute infarction. No extraaxial fl uid collections are seen. Posterior Fossa: The cerebellum and brainstem are intact. The 4th ventricle is midline. The cerebe llopontine angle is unremarkable. Extracranial: The visualized portion of the orbits is intact. Skull: The calvaria is intact. No evidence of skull fracture. CONCLUSION: 1. No acute intracranial abnormality. . . Electronically signed by: Michael Max MD Board Certified Radiologist 10/09/2018 11:32 PM EST
[2018-10-09] MEDS: Pantoprazole Inj 80 MG in Sodium Chlor 0.9% Inj 100 ML IV.CONT SCH (23:34)
--- NOTE | 2018-10-09 23:36 | CT ---
EXAM DATE: 10/09/2018 11:25 PM EST AGE/SEX: 68 years / Male INDICATIONS: Syncope. Fell and hit head on a chair. CLINICAL DATA: This is the patient's initial encounter. Patient reports that signs and symptoms have been present for 1 day and indicates a pain score of 4/10. MEDICAL/SURGICAL HISTORY: Hypertension. Myocardial infarction. Chronic obstructive pulmonary disease. Coronary artery stent. RADIATION DOSE: 22.42 CTDI (mGy) COMPARISON: No prior exams available for comparison. TECHNIQUE: Contiguous axial images were obtained using helical multirow detector technique. The vol umetric data was post-processed with multiplanar reconstruction in oblique axial, sagittal, and coron al planes. Using automated exposure control and adjustment of the mA and/or kV according to patient s ize, radiation dose was kept as low as reasonably achievable to obtain optimal diagnostic quality joseluis ges. DICOM format image data is available electronically for review and comparison. FINDINGS: Vertebrae: Normal vertebral body height. Alignment: Normal. No subluxation. Calcified atherosclerotic plaque involving the carotid arteries bilaterally. C2-3: The bony spinal canal is normal in size. No evidence of disc bulge or herniation. The neural foramina are bilaterally patent. C3-4: The bony spinal canal is normal in size. No evidence of disc bulge or herniation. The neural foramina are bilaterally patent. C4-5: Small central bulge. No central canal stenosis. Neural foramina are patent.. C5-6: The bony spinal canal is normal in size. No evidence of disc bulge or herniation. Bony uncove rtebral hypertrophy which is more pronounced on the right generates narrowing of both neural foramina as well as the right lateral recess. Central canal remains patent.. C6-7: The bony spinal canal is normal in size. No evidence of disc bulge or herniation. The neural foramina are bilaterally patent. C7-T1: The bony spinal canal is normal in size. No evidence of disc bulge or herniation. The neura l foramina are bilaterally patent. CONCLUSION: 1. No fracture or dislocation. 2. Mild degenerative changes. 3. Calcified plaque involving the carotid arteries. Electronically signed by: Michael Max MD Board Certified Radiologist 10/09/2018 11:35 PM EST
[2018-10-09 23:48] LABS: Activated Partial Thrombo Time 19.5 sec (23.4-31.7); INR 1.2 Ratio; Prothrombin Time 11.9 sec (9.8-11.6)
[2018-10-09 23:56] LABS: Alanine Aminotransferase 36 U/L (12-78); Albumin 3.3 g/dL (3.4-5.0); Alkaline Phosphatase 80 U/L (45-117); Anion Gap 13 meq/L (5-15); Aspartate Aminotransferase 38 U/L (15-37); Blood Urea Nitrogen 51 mg/dL (7-18); Carbon Dioxide 22.2 meq/L (21.0-32.0); Chloride 105 meq/L (98-107); Glomerular Filtration Rate 44 mL/min (>89); Glucose,Random 88 mg/dL (74-106); Lipase 168 U/L (73-393); Potassium 3.6 meq/L (3.5-5.1); Sodium 140 meq/L (136-145); Total Protein 6.3 g/dL (6.4-8.2)
[2018-10-09 23:57] LABS: Alcohol 139 mg/dL (0-5)
[2018-10-10] MEDS ORDERED: Bisacodyl 10 MG Supp RECTAL PRN (00:19)
[2018-10-10] MEDS ORDERED: Acetaminophen 325 MG Tablet PO PRN (00:19)
[2018-10-10] MEDS: Sod Chloride 0.9% Inj 1,000 ML IV.CONT SCH ×2 (00:47→11:24)
--- NOTE | 2018-10-10 00:48 | P.HPIM ---
History of Present Illness Primary Care Physician: UNKNOWN History of Present Illness: This is a 68-year-old male with a PMH of HTN, Hyperlipidemia, COPD and h/o CAD who was brought to the ER by EMS after syncopal event witnessed by . Pt states he's been having dizziness for approx 3 days. Tonight, was sitting w/ having dinner when he had sudden onset syncopal event, +head trauma. Denies chest pain or SOB. Does note recent episodes of black, tarry stools for several days. On ASA. On arrival, BP 103/51, HR 80, O2 sat 100% on RA, Afebrile. Hgb 11.9, previously 13.0 on . INR 1.2. Doris 1.56, previously 1.01 on 09/02/2018. Troponin negative. Alcohol 139. CT Head with no acute findings. CT C-spine negative. Hemoccult + in ER, currently on Protonix gtt. Diagnosis (1) Syncope: (2) GI bleed: (3) MADELEINE (acute kidney injury): Review of Systems PAST FAMILY HISTORY: Reviewed. No h/o DM or CAD Review of Systems: all other systems reviewed are negative [facility] Family History Family History Other No cardiac disease Social History Social History Substance History: No History of Abuse Second Hand Smoke Exposure: No Smoking Status: Never smoker How Often Do You Have a Drink Containing Alcohol: 4 or more times a week Recent Travel in [email or web address] within the Last 8 Weeks: No Recent Out of Country Travel within the Last 8 Weeks: No Immunization History Tetanus Immunization: >5 Years Medications and Allergies Allergies Allergy/AdvReac Type Severity Reaction Status Date / Time No Known Allergies Allergy Verified 10/09/18 22:33 Home Medications Medication Instructions Recorded Confirmed Type albuterol sulfate 2 puff INHALATION QID 09/01/18 10/09/18 History aspirin 81 mg PO DAILY 09/01/18 10/09/18 History atorvastatin 40 mg PO QPM 09/01/18 10/09/18 History isosorbide mononitrate 60 mg PO QAM 09/01/18 10/09/18 History losartan-hydrochlorothiazide 1 tab PO DAILY 09/01/18 10/09/18 History metoprolol tartrate 12.5 mg PO DAILY 09/01/18 10/09/18 History tiotropium bromide 1 cap INHALATION DAILY 09/01/18 10/09/18 History Active Medications: Active Medications Acetaminophen (Tylenol) 650 mg PO Q4H PRN PRN Reason: Temp > 100.4 Al Hydroxide/Mg Hydroxide (Milk Of Magnesia Liq) 30 ml PO Q12H PRN PRN Reason: Mild Constipation Atorvastatin Calcium (Lipitor) 40 mg PO QPM [facility] Bisacodyl (Dulcolax Supp) 10 mg RECTAL DAILY PRN PRN Reason: SEVERE CONSITIPATION Pantoprazole Sodium 80 mg/ (Sodium Chloride) 100 mls @ 10 mls/hr IV.CONT CONT [facility] Last Admin: 10/09/18 23:34 Dose: 10 mls/hr Sodium Chloride (Ns Inj) 1,000 mls @ 100 mls/hr IV.CONT .Q10H [facility] Isosorbide Mononitrate (Imdur) 60 mg PO DAILY@0700 [facility] Lactulose (Lactulose Liq) 30 ml PO DAILY PRN PRN Reason: SEVERE CONSITIPATION Metoprolol Tartrate (Lopressor) 12.5 mg PO DAILY [facility] Ondansetron HCl (Zofran Inj) 4 mg IV.PUSH Q6H PRN PRN Reason: NAUSEA OR VOMITING Senna/Docusate Sodium (Perlita-Colace) 1 tab PO BID [facility] Sennosides (Senokot) 17.2 mg PO Q12H PRN PRN Reason: Moderate Constipation Sodium Chloride (Ns Flush) 2 ml IV.FLUSH BID [facility] Sodium Chloride (Ns Flush) 2 ml IV.FLUSH PRN PRN PRN Reason: FLUSH AFTER USING IV ACCESS Tiotropium [place] (Spiriva 18 Mcg Inh) 18 mcg INH DAILY [facility] Physical Exam Vital signs: Vital Signs 10/09/18 22:33 10/09/18 22:37 10/09/18 23:35 Pulse Rate 80 83 Respiratory Rate 20 20 Blood Pressure 103/51 L 103/51 L Pulse Oximetry 100 100 98 10/09/18 23:36 10/10/18 00:05 Pulse Rate 81 82 Respiratory Rate 18 18 Blood Pressure 104/54 L 102/54 L Pulse Oximetry 98 100 Intake & Output 10/09/18 10/09/18 10/10/18 06:59 18:59 06:59 Intake Total 1000 / 1000 Balance 1000 / 1000 Weight 93.44 kg Intake: IV 1000 / 1000 NS Inj 1,000 ML @ Wide Open IV. 1000 / 1000 SIG BOLUS ONE Rx#:[id number] Narrative: PE: GENERAL: Pleasant middle-aged white male in no acute distress. SKIN: Focused skin assessment warm and dry. HEENT: PERRLA, EOMI. No scleral icterus or conjunctival pallor. No lid lag or facial droop. CARDIOVASCULAR: Regular rate and rhythm. No obvious murmurs to auscultation. No chest tenderness to palpation. RESPIRATORY: No obvious rhonchi or wheezing. Clear to auscultation. Breath sounds equal bilaterally. GASTROINTESTINAL: Abdomen soft, non-tender, nondistended. BS normal. MUSCULOSKELETAL: Extremities without clubbing, cyanosis, or edema. No obvious deformities. NEUROLOGICAL: Awake, alert and oriented x4. No focal neurologic deficits. Moving both upper and lower extremities spontaneously. PSYCHIATRIC: Appropriate mood and affect. Insight and judgment normal. Results Labs CBC & Chem 7: 10/09/18 23:00 10/09/18 23:00 Imaging Impressions Cervical Spine CT 10/09/18 23:03 CONCLUSION: 1. No fracture or dislocation. 2. Mild degenerative changes. 3. Calcified plaque involving the carotid arteries. Head CT 10/09/18 23:03 CONCLUSION: 1. No acute intracranial abnormality. . . Caprini VTE Risk Assessment Caprini VTE Risk Assessment: No/Low Risk (score <= 1) VTE Pharmacological Exception Reason: Active bleeding Caprini Risk Assessment Model: Point Value = 1 Point Value = 2 Point Value = 3 Point Value = 5 Age 41-60 Minor surgery BMI > 25 kg/m2 Swollen legs Varicose veins or History of unexplained or recurrent spontaneous Oral contraceptives or hormone replacement Sepsis (< 1 month) Serious lung disease, including pneumonia (< 1 month) Abnormal pulmonary function Acute myocardial infarction Congestive heart failure (< 1 month) History of inflammatory bowel disease Medical patient at bed rest Age 61-74 Arthroscopic surgery Major open surgery (> 45 min) Laparoscopic surgery (> 45 min) Malignancy Confined to bed (> 72 hours) Immobilizing plaster cast Central venous access Age >= 75 History of VTE Family history of VTE Factor V Leiden Prothrombin [id number] Lupus anticoagulant Anticardiolipin antibodies Elevated serum homocysteine Heparin-induced thrombocytopenia Other congenital or acquired thrombophilia Stroke (< 1 month) Elective arthroplasty Hip, pelvis, or leg fracture Acute spinal cord injury (< 1 month) Prophylaxis Regimen: Total Risk Factor Score Risk Level Prophylaxis Regimen 0-1 Low Early ambulation 2 Moderate Order ONE of the following: *Sequential Compression Device (SCD) *Heparin 5000 units SQ BID 3-4 Higher Order ONE of the following medications: *Heparin 5000 units SQ TID *Enoxaparin/Lovenox 40 mg SQ daily (WT < 150 kg, CrCl > 30 mL/min) *Enoxaparin/Lovenox 30 mg SQ daily (WT < 150 kg, CrCl > 10-29 mL/min) *Enoxaparin/Lovenox 30 mg SQ BID (WT < 150 kg, CrCl > 30 mL/min) AND/OR *Sequential Compression Device (SCD) 5 or more Highest Order ONE of the following medications: *Heparin 5000 units SQ TID (Preferred with Epidurals) *Enoxaparin/Lovenox 40 mg SQ daily (WT < 150 kg, CrCl > 30 mL/min) *Enoxaparin/Lovenox 30 mg SQ daily (WT < 150 kg, CrCl > 10-29 mL/min) *Enoxaparin/Lovenox 30 mg SQ BID (WT < 150 kg, CrCl > 30 mL/min) AND *Sequential Compression Device (SCD) Assessment and Plan (1) Syncope: Code(s): R55 - Syncope and collapse Status: Acute (2) GI bleed: Code(s): K92.2 - Gastrointestinal hemorrhage, unspecified Status: Acute (3) MADELEINE (acute kidney injury): Code(s): N17.9 - Acute kidney failure, unspecified Status: Acute Plan A/P: 1. Syncope: likely related to dehydration, CT Head/C-Spine w/ no acute findings, Echo 09/01/18 w/ EF 55-60%, admit for Observation, telemetry, initial trop negative, check serial cardiac enzymes to eval for underlying ischemia. 2. GI Bleed: Hemoccult +, Hgb 11.9, previously 13.0 on 09/02/18, continue Protonix gtt, Consult GI for further eval/intervention, repeat Hgb/Hct in am, hold ASA. 3. MADELEINE: Creatinine 1.56, previously 1.01 on 09/02/18, IVF for hydration, monitor I/O, repeat labs in am. 4. Alcohol Use: 4 drinks/day, Alcohol 139, MCV 109.6, CIWA, Seizure Precautions, MVT/Thiamine/Folate replacement. 5. DVT Prophylaxis: Pharmacologic contraindication in light of GI Bleed 6. Social work for d/c planning as needed. 7. Case discussed w/ ER physician at length, labs/records/imaging reviewed by me.
[2018-10-10] MEDS ORDERED: LORazepam 1 MG Tablet PO PRN (00:55)
[2018-10-10] MEDS ORDERED: Haloperidol Inj 5 MG/ML Ampul IV.PUSH PRN (00:55)
[2018-10-10] MEDS ORDERED: Sod Chloride 0.9% Inj 1,000 ML IV.SIG SCH (04:01)
[2018-10-10 04:27] LABS: Bilirubin,Urine Negative (Negative); Clarity,Urine Clear (Clear); Color,Urine Yellow (Yellw/Straw); Glucose,Urine (UA) Negative (Negative); Hyaline Casts,Urine 8 /lpf (0-3); Leukocyte Esterase,Urine Negative (Negative); Mucus,Urine Few /lpf (Occasional); Nitrite,Urine Negative (Negative); Specific Gravity,Urine 1.012 (1.002-1.035)
[2018-10-10] MEDS ORDERED: Isosorbide Mononitrate 60 MG ER 24HR Tablet (Imdur) PO SCH (07:00)
[2018-10-10] MEDS ORDERED: Metoprolol Tartrate 25 MG Tablet PO SCH (09:00)
[2018-10-10 09:29] LABS: Baso % (Auto) 0.5 % (0.0-2.0); Eos # (Auto) 0.1 th/mm3 (0.0-0.4); Hematocrit 27.3 % (39.0-51.0); Hemoglobin 9.5 gm/dL (13.0-17.0); Lymph # (Auto) 1.2 th/mm3 (1.0-4.8); Lymph % (Auto) 23.9 % (9.0-44.0); Mean Corpuscular HGB Conc 34.8 % (32.0-36.0); Mean Corpuscular Hemoglobin 37.4 pg (27.0-34.0); Mean Corpuscular Volume 107.3 fL (80.0-100.0); Mean Platelet Volume 7.8 fL (7.0-11.0); Mono # (Auto) 0.4 th/mm3 (0.0-0.9); Mono % (Auto) 8.1 % (0.0-8.0); Neut # (Auto) 3.3 th/mm3 (1.8-7.7); Neut % (Auto) 66.5 % (16.0-70.0); Platelet Count 104 th/mm3 (150-450); Red Blood Count 2.54 mil/mm3 (4.50-5.90); Red Cell Distribution Width 13.4 % (11.6-17.2); White Blood Count 4.9 th/mm3 (4.0-11.0)
--- NOTE | 2018-10-10 09:30 | P.PNIM ---
Subjective Interval history: Follow-up for syncope, GI bleed, hypertension. Patient reports feeling slightly better today. He denies any current lightheadedness or dizziness. Denies any headache. Denies any chest pain, palpitations, shortness of breath. He denies any abdominal pain, and or nausea/vomiting. Patient reports he has been having black tarry stools over the past 2-3 days now. He reports approximately 34 bowel movements daily. He states he has been having problems over the past several months with chronic diarrhea. The patient denies any recent NSAID use. He does admit to taking some over-the- counter medication for sexual performance enhancement, but he does not recall the medication. He takes a baby aspirin daily. He reports a history of VT in May 2016, had one stent placed. He denies any recent anginal symptoms. Patient also reports he did have a routine EGD/colonoscopy in [place] back in May 2018, which found polyps, otherwise unremarkable. He denies any other medical complaints at this time. Physical Exam Vital signs: Vital Signs 10/09/18 22:33 10/09/18 22:37 10/09/18 23:35 Temperature Pulse Rate 80 83 Respiratory Rate 20 20 Blood Pressure 103/51 L 103/51 L Pulse Oximetry 100 100 98 10/09/18 23:36 10/10/18 00:05 10/10/18 00:49 Temperature Pulse Rate 81 82 81 Respiratory Rate 18 18 24 Blood Pressure 104/54 L 102/54 L 102/53 L Pulse Oximetry 98 100 98 10/10/18 03:48 10/10/18 07:36 Temperature 98.3 F 98.6 F Pulse Rate 86 85 Respiratory Rate 12 18 Blood Pressure 87/52 L 104/53 L Pulse Oximetry 93 L 96 Intake & Output 10/09/18 10/10/18 10/10/18 18:59 06:59 18:59 Intake Total 2480 / 2480 Output Total 360 / 360 Balance 2120 / 2120 Weight 93.44 kg 93.44 kg Intake: IV 1999 NS Inj 1,000 ML @ 1000 mls/hr 1999 IV.SIG BOLUS PATTI Rx#:[id number] Oral 480 / 480 Output: Urine 360 / 360 Other: Weight On Admission 93.44 kg Narrative: GENERAL: Well-nourished, well-developed pleasant male patient in NAD. SKIN: Warm and dry. No rash. CARDIOVASCULAR: Regular rate and rhythm. No murmur appreciated. RESPIRATORY: No accessory muscle use. Clear to auscultation. Breath sounds equal bilaterally. GASTROINTESTINAL: Abdomen soft, non-tender, nondistended. Normoactive bowel sounds x4. MUSCULOSKELETAL: No obvious deformities. Extremities without clubbing, cyanosis , or edema. NEUROLOGICAL: Awake and alert. No obvious cranial nerve deficits. Motor grossly within normal limits. Moving all extremities spontaneously. Normal speech. PSYCHIATRIC: Appropriate mood and affect; insight and judgment normal. Results Labs CBC & Chem 7: 10/10/18 09:10 10/10/18 09:10 Imaging Imaging: Impressions Cervical Spine CT 10/09/18 23:03 CONCLUSION: 1. No fracture or dislocation. 2. Mild degenerative changes. 3. Calcified plaque involving the carotid arteries. Head CT 10/09/18 23:03 CONCLUSION: 1. No acute intracranial abnormality. . . Assessment and Plan (1) Syncope: Code(s): R55 - Syncope and collapse Status: Acute (2) GI bleed: Code(s): K92.2 - Gastrointestinal hemorrhage, unspecified Status: Acute (3) MADELEINE (acute kidney injury): Code(s): N17.9 - Acute kidney failure, unspecified Status: Acute Plan 68-year-old male with a PMH of HTN, Hyperlipidemia, COPD and h/o CAD who was brought to the ER by EMS after syncopal event witnessed by . Pt states he' s been having dizziness for approx 3 days. Does note recent episodes of black , tarry stools for several days. On ASA. Hemoccult + in ER. Syncope: Acute, likely secondary to dehydration/hypovolemia. BP down to 87/52 -CT head/C-spine reviewed with no acute findings -EMR reviewed, Echo 09/01/18 w/ EF 55-60% -Monitor on telemetry -Troponin negative, no complaints of chest pain -Check orthostatic vital signs -Give IV fluid hydration GI bleed: Suspect upper GI bleed. Hemoccult positive in the ED. -Hemoglobin 11.9, previously 13.0 on 09/02/18 -Started on IV Protonix drip -Hold patient's aspirin -Keep n.p.o. -Continue to trend H&H, hemoglobin decreased from 11.9 to 9.5 -Transfuse if hemoglobin less than 9 (patient with hx of cardiac disease and active bleeding) -GI consulted, appreciate assistance Diarrhea: patient reports ongoing diarrhea 3-4 times a day for a few months now -check stool studies and Cdiff -lactinex bid MADELEINE: Creatinine 1.56, previously 1.01 on 09/02/18, suspect secondary to dehydration -Give IVF for hydration -Avoid nephrotoxins -monitor I/O -Repeat labs show improvement with Cr 1.16 today Alcohol Use: 4 drinks/day -Alcohol level 139 upon arrival -MCV 109.6, likely chronic alcohol use -CIWA, Seizure Precautions, MVT/Thiamine/Folate replacement. Hypertension: with hypotensive episodes during admission -hold patient's losartan, HCTZ, imdur -monitor BP, add antihypertensives as needed Hyperlipidemia: chronic -continue patient's statin CAD: chronic, hx of stent x1 placed in May 2016 -no complaints of chest pain, troponin negative -holding aspirin due to GI bleed -continue BB if BP will allow -holding Imdur due to hypotension DVT Prophylaxis: teds/SCDs, Pharmacologic contraindication in light of GI Bleed Attending Attestation patient was seen and examined today. looks comfortable with no chest pain, sob, abdominal pain. on exam; abdomen is soft with no tenderness. awaiting GI evaluation. continue to monitor H/H. Progress Note: Quality VTE Deep Vein Thrombosis/Pulmonary Embolism Present on Admission: No
[2018-10-10 09:51] LABS: Albumin 2.8 g/dL (3.4-5.0); Anion Gap 9 meq/L (5-15); Aspartate Aminotransferase 23 U/L (15-37); Blood Urea Nitrogen 39 mg/dL (7-18); Calcium 7.6 mg/dL (8.5-10.1); Carbon Dioxide 22.3 meq/L (21.0-32.0); Chloride 109 meq/L (98-107); Glomerular Filtration Rate 63 mL/min (>89); Glucose,Random 84 mg/dL (74-106); Potassium 3.6 meq/L (3.5-5.1); Sodium 140 meq/L (136-145)
[2018-10-10 09:56] LABS: Alanine Aminotransferase 29 U/L (12-78); Alkaline Phosphatase 67 U/L (45-117); Total Protein 5.5 g/dL (6.4-8.2)
--- NOTE | 2018-10-10 10:23 | P.CONGI ---
History of Present Illness Consult date: 10/10/18 Consult reason: GI bleed Chief complaint: GI Bleed, Syncope History of Present Illness: Patient is a pleasant 68-year-old male with past medical history significant for hypertension, hyperlipidemia, COPD and coronary artery disease, [place] with stent placement 2016. Patient presented to [facility] emergency room post syncopal episode last evening. Patient states he was sitting at the dinner table with his when he suddenly had a syncopal event , fell from chair and hit head sustaining a small laceration to right brow. CT head with no acute findings. CT C-spine negative. Patient was found to be Hemoccult positive on arrival and is currently on a Protonix drip. Patient does endorse 3-4 days of black tarry stools with generalized weakness. Patient endorses that he takes aspirin 81 mg p.o. daily. Troponin less than 0.02. Hemoglobin 11.9 hematocrit 34 on arrival--this a.m. hemoglobin 9.5 hematocrit 27. 12-lead normal sinus rhythm without obvious ischemic change noted. Of note, patient's alcohol level was 139 on arrival. During consult, patient awake alert oriented and is currently on CIWA protocol. Patient states that he takes Zantac occasionally for heartburn. He denies dysphagia or odynophagia. Denies any known family history for gastrointestinal diseases. Patient denies tobacco use, states he quit smoking cigarettes 6 months ago. Patient does admit to drinking 2-3 alcoholic beverages that include bourbon daily with dinner. Chart review reveals patient admits to taking some [id number] medication for sexual performance enhancement, patient unable to recall name of the medication. Patient denies use of NSAIDs other than above-noted aspirin. Denies any past history of having had an EGD. Does report last colonoscopy done in May 2018 in [place] which revealed polyps and no other remarkable findings per patient. Our service has been consulted to evaluate patient for GI bleed Review of Systems All other systems reviewed negative except as stated in 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 - Medical History Medical History: Medical History (Last Reviewed 10/10/18 @ 08:48 by Malini Laureano) COPD (chronic obstructive pulmonary disease) High cholesterol Hypertension Myocardial infarction - Surgical History Surgical History: Surgical History (Last Reviewed 10/10/18 @ 08:48 by Malini Laureano) H/O heart artery stent H/O right knee surgery H/O shoulder surgery - Family History Family History: Family History (Last Reviewed 10/10/18 @ 08:48 by Malini Laureano) Other No cardiac disease - Tobacco History Second Hand Smoke Exposure: No Smoking Status: Never smoker - Alcohol History How Often Do You Have a Drink Containing Alcohol: 4 or more times a week - Substance Use History Substance History: No History of Abuse - Travel History Recent Travel in the [place] Within the Last 8 Weeks: No Recent Travel Out of the Country Within the Last 8 Weeks: No - Immunization History Tetanus Immunization: >5 Years Medications and Allergies Active Medications: Active Medications Acetaminophen (Tylenol) 650 mg PO Q4H PRN PRN Reason: Temp > 100.4 Al Hydroxide/Mg Hydroxide (Milk Of Magnesia Liq) 30 ml PO Q12H PRN PRN Reason: Mild Constipation Atorvastatin Calcium (Lipitor) 40 mg PO QPM PATTI Bisacodyl (Dulcolax Supp) 10 mg RECTAL DAILY PRN PRN Reason: SEVERE CONSITIPATION Flumazenil (Romazicon Inj) 0.2 mg IV.PUSH Q1M PRN PRN Reason: OVERSEDATION Folic Acid (Folic Acid) 1 mg PO DAILY [facility] Stop: 10/15/18 08:59 Haloperidol Lactate (Haldol Inj) 1 mg IV.PUSH Q15M PRN PRN Reason: for severe agitation Pantoprazole Sodium 80 mg/ (Sodium Chloride) 100 mls @ 10 mls/hr IV.CONT CONT PATTI Last Infusion: 10/10/18 06:06 Dose: 10 mls/hr Sodium Chloride (Ns Inj) 1,000 mls @ 100 mls/hr IV.CONT .Q10H [facility] Last Infusion: 10/10/18 06:06 Dose: 100 mls/hr Lactulose (Lactulose Liq) 30 ml PO DAILY PRN PRN Reason: SEVERE CONSITIPATION Lorazepam (Ativan Inj) 1 mg IV.PUSH Q4H PRN PRN Reason: for CIWA 8-10 Lorazepam (Ativan Inj) 2 mg IV.PUSH Q15M PRN PRN Reason: for CIWA > 20 Lorazepam (Ativan Inj) 2 mg IV.PUSH Q1H PRN PRN Reason: for CIWA 15-20 Lorazepam (Ativan Inj) 2 mg IV.PUSH Q2H PRN PRN Reason: for CIWA 11-14 Lorazepam (Ativan) 1 mg PO Q4H PRN PRN Reason: for CIWA 8-10 Lorazepam (Ativan) 2 mg PO Q2H PRN PRN Reason: for CIWA 11-14 Multivitamins/Minerals (Theragran-M) 1 tab PO DAILY [facility] Stop: 10/15/18 08:59 Ondansetron HCl (Zofran Inj) 4 mg IV.PUSH Q6H PRN PRN Reason: NAUSEA OR VOMITING Senna/Docusate Sodium (Perlita-Colace) 1 tab PO BID [facility] Sennosides (Senokot) 17.2 mg PO Q12H PRN PRN Reason: Moderate Constipation Sodium Chloride (Ns Flush) 2 ml IV.FLUSH BID PATTI Sodium Chloride (Ns Flush) 2 ml IV.FLUSH PRN PRN PRN Reason: FLUSH AFTER USING IV ACCESS Thiamine HCl (Vitamin B1) 100 mg PO DAILY [facility] Tiotropium [place]berta (Spiriva 18 Mcg Inh) 18 mcg INH DAILY [facility] Allergies Allergy/AdvReac Type Severity Reaction Status Date / Time No Known Allergies Allergy Verified 10/09/18 22:33 Home Medications Medication Instructions Recorded Confirmed Type albuterol sulfate 2 puff INHALATION QID 09/01/18 10/09/18 History aspirin 81 mg PO DAILY 09/01/18 10/09/18 History atorvastatin 40 mg PO QPM 09/01/18 10/09/18 History isosorbide mononitrate 60 mg PO QAM 09/01/18 10/09/18 History losartan-hydrochlorothiazide 1 tab PO DAILY 09/01/18 10/09/18 History metoprolol tartrate 12.5 mg PO DAILY 09/01/18 10/09/18 History tiotropium bromide 1 cap INHALATION DAILY 09/01/18 10/09/18 History Exam Vital signs: Vital Signs 10/09/18 22:33 10/09/18 22:37 10/09/18 23:35 Temperature Pulse Rate 80 83 Respiratory Rate 20 20 Blood Pressure 103/51 L 103/51 L Pulse Oximetry 100 100 98 10/09/18 23:36 10/10/18 00:05 10/10/18 00:49 Temperature Pulse Rate 81 82 81 Respiratory Rate 18 18 24 Blood Pressure 104/54 L 102/54 L 102/53 L Pulse Oximetry 98 100 98 10/10/18 03:48 10/10/18 07:36 Temperature 98.3 F 98.6 F Pulse Rate 86 85 Respiratory Rate 12 18 Blood Pressure 87/52 L 104/53 L Pulse Oximetry 93 L 96 Intake & Output 10/09/18 10/10/18 10/10/18 18:59 06:59 18:59 Intake Total 2480 / 2480 Output Total 360 / 360 Balance 2120 / 2120 Weight 93.44 kg 93.44 kg Intake: IV 1999 NS Inj 1,000 ML @ 1000 mls/hr 1999 IV.SIG BOLUS PATTI Rx#:[id number] Oral 480 / 480 Output: Urine 360 / 360 Other: Weight On Admission 93.44 kg - Constitutional no acute distress, cooperative - Routine HEENT Exam Head: Present: normocephalic - Routine Neck Exam Present: supple, trachea midline - Routine Respiratory Exam Present: CTA bilaterally. Absent: accessory muscle use - Routine Cardiovascular Exam Present: RRR - Routine Abdominal Exam Present: soft, normoactive bowel sounds. Absent: tenderness, distended, guarding, firm, surgical scars - Routine Extremities Exam Present: pulses intact. Absent: edema - Routine Skin Exam Present: dry, warm. Absent: pallor - Routine Neurological Exam Present: alert, oriented X3 Results - Labs CBC & Chem 7: 10/10/18 09:10 10/10/18 09:10 Labs: Laboratory Results - last 24 hr 10/09/18 10/09/18 10/09/18 23:00 23:00 23:00 WBC 9.0 RBC 3.18 L Hgb 11.9 L Hct 34.8 L MCV 109.6 H MCH 37.3 H MCHC 34.1 RDW 13.5 Plt Count 157 MPV 8.5 Neut % (Auto) 66.1 Lymph % (Auto) 24.8 [place] % (Auto) 7.7 Eos % (Auto) 0.7 Baso % (Auto) 0.7 Neut # (Auto) 6.0 Lymph # (Auto) 2.2 [place] # (Auto) 0.7 Eos # (Auto) 0.1 Baso # (Auto) 0.1 WBC Differential . Differential Comment Auto diff final PT 11.9 H INR 1.2 APTT 19.5 L Sodium 140 Potassium 3.6 Chloride 105 Carbon Dioxide 22.2 Anion Gap 13 BUN 51 H Creatinine 1.56 H Estimated GFR 44 L POC Glucose Random Glucose 88 Calcium 8.0 L Total Bilirubin 0.8 AST 38 H ALT 36 Alkaline Phosphatase 80 Troponin I Total Protein 6.3 L Albumin 3.3 L Lipase 168 Urine Color Urine Clarity Urine pH Ur Specific Crystal Urine Protein Urine Glucose (UA) Urine Ketones Urine Occult Blood Urine Nitrate Urine Bilirubin Urine Urobilinogen Ur Leukocyte Esterase Urine RBC Urine WBC Hyaline Casts Urine Mucus Micro UA Comment Ur Microscopic Review Urine Culture Comments Serum Alcohol 139 H Blood Type Blood Type Recheck Antibody Screen 10/09/18 10/09/18 10/10/18 23:00 23:00 02:11 WBC RBC Hgb Hct MCV MCH MCHC RDW Plt Count MPV Neut % (Auto) Lymph % (Auto) [place] % (Auto) Eos % (Auto) Baso % (Auto) Neut # (Auto) Lymph # (Auto) [place] # (Auto) Eos # (Auto) Baso # (Auto) WBC Differential Differential Comment PT INR APTT Sodium Potassium Chloride Carbon Dioxide Anion Gap BUN Creatinine Estimated GFR POC Glucose 113 H Random Glucose Calcium Total Bilirubin AST ALT Alkaline Phosphatase Troponin I Less than 0.02 L Total Protein Albumin Lipase Urine Color Urine Clarity Urine pH Ur Specific Crystal Urine Protein Urine Glucose (UA) Urine Ketones Urine Occult Blood Urine Nitrate Urine Bilirubin Urine Urobilinogen Ur Leukocyte Esterase Urine RBC Urine WBC Hyaline Casts Urine Mucus Micro UA Comment Ur Microscopic Review Urine Culture Comments Serum Alcohol Blood Type A Positive Blood Type Recheck Required Antibody Screen Negative 10/10/18 10/10/18 10/10/18 02:45 08:21 09:10 WBC 4.9 RBC 2.54 L Hgb 9.5 L D Hct 27.3 L MCV 107.3 H MCH 37.4 H MCHC 34.8 RDW 13.4 Plt Count 104 L D MPV 7.8 Neut % (Auto) 66.5 Lymph % (Auto) 23.9 [place] % (Auto) 8.1 H Eos % (Auto) 1.0 Baso % (Auto) 0.5 Neut # (Auto) 3.3 Lymph # (Auto) 1.2 [place] # (Auto) 0.4 Eos # (Auto) 0.1 Baso # (Auto) 0.0 WBC Differential . Differential Comment Auto diff final PT INR APTT Sodium Potassium Chloride Carbon Dioxide Anion Gap BUN Creatinine Estimated GFR POC Glucose 90 Random Glucose Calcium Total Bilirubin AST ALT Alkaline Phosphatase Troponin I Total Protein Albumin Lipase Urine Color Yellow Urine Clarity Clear Urine pH 5.0 Ur Specific Crystal 1.012 Urine Protein Negative Urine Glucose (UA) Negative Urine Ketones Negative Urine Occult Blood Negative Urine Nitrate Negative Urine Bilirubin Negative Urine Urobilinogen Less than 2 Ur Leukocyte Esterase Negative Urine RBC 1 Urine WBC Less than 1 Hyaline Casts 8 Urine Mucus Few H Micro UA Comment Culture not ind Ur Microscopic Review Not Reportable Urine Culture Comments Culture not ind Serum Alcohol Blood Type Blood Type Recheck Antibody Screen 10/10/18 09:10 WBC RBC Hgb Hct MCV MCH MCHC RDW Plt Count MPV Neut % (Auto) Lymph % (Auto) [place] % (Auto) Eos % (Auto) Baso % (Auto) Neut # (Auto) Lymph # (Auto) [place] # (Auto) Eos # (Auto) Baso # (Auto) WBC Differential Differential Comment PT INR APTT Sodium 140 Potassium 3.6 Chloride 109 H Carbon Dioxide 22.3 Anion Gap 9 BUN 39 H Creatinine 1.16 Estimated GFR 63 L POC Glucose Random Glucose 84 Calcium 7.6 L Total Bilirubin AST 23 ALT Alkaline Phosphatase Troponin I Total Protein Albumin 2.8 L Lipase Urine Color Urine Clarity Urine pH Ur Specific Crystal Urine Protein Urine Glucose (UA) Urine Ketones Urine Occult Blood Urine Nitrate Urine Bilirubin Urine Urobilinogen Ur Leukocyte Esterase Urine RBC Urine WBC Hyaline Casts Urine Mucus Micro UA Comment Ur Microscopic Review Urine Culture Comments Serum Alcohol Blood Type Blood Type Recheck Antibody Screen - Imaging Impressions Cervical Spine CT 10/09/18 23:03 CONCLUSION: 1. No fracture or dislocation. 2. Mild degenerative changes. 3. Calcified plaque involving the carotid arteries. Head CT 10/09/18 23:03 CONCLUSION: 1. No acute intracranial abnormality. . . Assessment and Plan (1) GI bleed Status: Acute Code(s): K92.2 - Gastrointestinal hemorrhage, unspecified - Plan Patient is a pleasant 68-year-old male with past medical history significant for hypertension, hyperlipidemia, COPD and coronary artery disease, [place] with stent placement 2016. Patient presented to [facility] emergency room post syncopal episode last evening. Patient states he was sitting at the dinner table with his when he suddenly had a syncopal event, fell from chair and hit head sustaining a small laceration to right brow. CT head with no acute findings. CT C-spine negative. Patient was found to be Hemoccult positive on arrival and is currently on a Protonix drip. Patient does endorse 3 -4 days of black tarry stools with generalized weakness. Patient endorses that he takes aspirin 81 mg p.o. daily. Troponin less than 0.02. Hemoglobin 11.9 hematocrit 34 on arrival--this a.m. hemoglobin 9.5 hematocrit 27. 12-lead normal sinus rhythm without obvious ischemic change noted. Of note, patient's alcohol level was 139 on arrival. During consult, patient awake alert oriented and is currently on CIWA protocol. Patient states that he takes Zantac occasionally for heartburn. He denies dysphagia or odynophagia. Denies any known family history for gastrointestinal diseases. Patient denies tobacco use, states he quit smoking cigarettes 6 months ago. Patient does admit to drinking 2-3 alcoholic beverages that include bourbon daily with dinner. Chart review reveals patient admits to taking some [id number] medication for sexual performance enhancement, patient unable to recall name of the medication. Patient denies use of NSAIDs other than above-noted aspirin. Denies any past history of having had an EGD. Does report last colonoscopy done in May 2018 in [place] which revealed polyps and no other remarkable findings per patient. Our service has been consulted to evaluate patient for GI bleed GI [id number] endorses 3 days of black tarry stools with generalized weakness. States he takes aspirin 81 mg p.o. daily and denies use of other NSAIDs. Hemoglobin 11.9 hematocrit 34 on arrival. This a.m. hemoglobin 9.5 hematocrit 27. EtOH abuse-patient endorses long history of daily drinking of 2-3 alcoholic beverages nightly Acute kidney injury-BUN 51 creatinine 1.5 on arrival, BUN 39 creatinine 1.16 post 2 L bolus Plan -N.p.o. -Obtain consent for EGD -Avoid anticoagulants -Avoid NSAIDs -Monitor hemoglobin and hematocrit -Monitor for active bleeding -Transfuse as needed -Continue pantoprazole drip -Supportive care -Further recommendations to follow This patient has been seen by myself and Dr. Maza and this note is written on his behalf - Attending Attestation Dr. Maza
[2018-10-10] MEDS: Multivitamin/Minerals Therapeutic Tablet PO SCH (11:15)
[2018-10-10] MEDS: Folic Acid 1 MG Tablet PO SCH (11:15)
[2018-10-10] MEDS: Senna/Docusate Sodium 8.6/50 MG Tablet PO SCH ×2 (11:16→20:02)
--- NOTE | 2018-10-10 11:31 | ECG ---
Date Performed: 10/09/2018 Time Performed: 22:44:14 PTAGE: 68 years EKG: Sinus rhythm NORMAL ECG PREVIOUS TRACING : 09/01/2018 17.55 No significant change from previous tracing noted. DOCTOR: Jensen Guzman Interpretating Date/Time 10/10/2018 11:30:27
[2018-10-10] MEDS ORDERED: Lidocaine PF 1% Inj 5 ML Syringe OTHER ONE (12:53)
[2018-10-10] MEDS ORDERED: Phenylephrine/NS 1000 MCG/10ML Syringe IV.PUSH ONE (12:53)
--- NOTE | 2018-10-10 13:32 | GIPROC ---
[facility] [address] [facility]. [facility], [address] EGD PROCEDURE REPORT EXAM DATE: 10/10/2018 PATIENT NAME: Pierre Ahuja MR #: [id number] BIRTHDATE: 1950 ATTENDING: Jerry Maza MD ORDER #: [id number] STANDPIPE TENDER: Edda Manning and Jose Bedoya STATUS: inpatient INDICATIONS: The patient is a 68 yr old male here for an EGD due to acute post hemorrhagic anemia and melena PROCEDURE PERFORMED: EGD, diagnostic EGD w/ directed submucosal injection(s), any substance and hemoclip MEDICATIONS: Per Anesthesia and None. TOPICAL ANESTHETIC: none CONSENT: The patient understands the risks and benefits of the procedure and understands that these risks include, but are not limited to: sedation, allergic reaction, infection, perforation and/or bleeding. Alternative means of evaluation and treatment include, among others: physical exam, x-rays, and/or surgical intervention. The patient elects to proceed with this endoscopic procedure. medical equipment was checked for proper function. Hand hygiene and appropriate measures for infection prevention was taken. After the risks, benefits and alternatives of the procedure were thoroughly explained, Informed consent was verified, confirmed and timeout was successfully executed by the treatment team. The patient was anesthetized with topical anesthesia and the Pentax [id number] endoscope was introduced through the mouth and advanced to the second portion of the duodenum. Retroflexed views revealed no abnormalities The gastroscope was then slowly withdrawn and removed. ESOPHAGUS: There was LA Class B esophagitis noted. DUODENUM: The duodenal mucosa appeared normal in the entire duodenum. STOMACH: A large non-bleeding and deep ulcer, ranging between 5-9mm in size, with a red spot was found in the gastric antrum. Hemostasis was attempted by placing a single hemoclip on the bleeding site(s). Submucosal injection of 8ml of epinephrine 1:10,000 was performed around the bleeding site. ADVERSE EVENTS: There were no complications. IMPRESSIONS: 1. There was LA Class B esophagitis noted 2. Normal duodenal mucosa in the entire duodenum 3. Large ulcer, ranging between 5-9mm in size, was found in the gastric antrum; Hemostasis was attempted by placing a single hemoclip on the bleeding site(s); Submucosal injection of 8ml of epinephrine 1:10,000 was performed around the bleeding site 4. Retroflexed views revealed no abnormalities RECOMMENDATIONS: 1. Monitor labs Supportive tx 2. Continue PPI PATIENT CONDITION: stable DISPOSITION: Inpatient REPEAT EXAM: Return as needed for EGD Jerry Maza MD eSigned: Jerry Maza MD 10/10/2018 1:32 PM cc: PATIENT NAME: Pierre Ahuja MR#: [id number]
[2018-10-10] MEDS: Tiotropium Bromide 18 MCG/ACT Inhaler INH SCH (14:25)
[2018-10-10] MEDS: Pantoprazole Inj 80 MG in Sodium Chlor 0.9% Inj 100 ML IV.CONT SCH (15:16)
[2018-10-10 16:24] LABS: Hematocrit 28.8 % (39.0-51.0)
[2018-10-10] MEDS: Lactobacillus Acidophilus/L. Spores Tablet PO SCH (20:01)
[2018-10-10 20:34] LABS: Hematocrit 25.8 % (39.0-51.0)
[2018-10-11] MEDS: Sod Chloride 0.9% Inj 1,000 ML IV.CONT SCH ×4 (00:28→16:18)
[2018-10-11] MEDS: Pantoprazole Inj 80 MG in Sodium Chlor 0.9% Inj 100 ML IV.CONT SCH (00:28)
[2018-10-11 01:57] LABS: Hematocrit 25.5 % (39.0-51.0); Hemoglobin 8.8 gm/dL (13.0-17.0)
[2018-10-11 02:51] LABS: Calcium 7.4 mg/dL (8.5-10.1); Carbon Dioxide 24.5 meq/L (21.0-32.0); Potassium 3.5 meq/L (3.5-5.1)
[2018-10-11 03:22] LABS: Albumin 2.8 g/dL (3.4-5.0); Calcium-Albumin Corrected 8.4 mg/dL (8.5-10.1)
--- NOTE | 2018-10-11 07:44 | P.PNIM ---
Subjective Interval history: Follow-up for GI bleeding. Patient is status post EGD yesterday which showed esophagitis and large gastric ulcer s/p clipping. Patient reports feeling better today. He denies any significant abdominal pain. Denies any nausea or vomiting. He continues to have mixed loose and dark stools, however he feels that the dark stool is clearing up. Denies any bright red blood. Denies any lightheadedness, dizziness, chest pain, shortness of breath. Denies any fevers or chills. Denies any other medical complaints at this time. Physical Exam Vital signs: Vital Signs 10/10/18 10:47 10/10/18 11:42 10/10/18 13:29 Temperature 98.6 F 98.0 F Pulse Rate 85 77 81 Respiratory Rate 16 17 Blood Pressure 121/57 L 138/63 Pulse Oximetry 97 97 10/10/18 15:47 10/10/18 18:55 10/10/18 19:31 Temperature 98.6 F 98.2 F Pulse Rate 83 84 82 Respiratory Rate 18 20 Blood Pressure 131/63 119/57 L Pulse Oximetry 95 96 10/10/18 20:05 10/10/18 23:28 10/11/18 00:00 Temperature 98.5 F Pulse Rate 80 79 95 H Respiratory Rate 20 Blood Pressure 108/54 L Pulse Oximetry 94 L 10/11/18 04:00 10/11/18 04:36 Temperature 98.2 F Pulse Rate 78 71 Respiratory Rate 20 Blood Pressure 133/58 L Pulse Oximetry 96 Intake & Output 10/10/18 10/11/18 10/11/18 18:59 06:59 18:59 Intake Total 1700 / 1700 1320 / 1320 Balance 1700 / 1700 1320 / 1320 Weight 93.44 kg Intake: IV 1100 / 1100 1100 / 1100 Protonix Inj 80 MG In NS Inj 100 / 100 100 / 100 100 ML @ 10 mls/hr IV.CONT CONT PATTI Rx#:[id number] NS Inj 1,000 ML @ 100 mls/hr IV 1000 / 1000 1000 / 1000 .CONT .Q10H PATTI Rx#:[id number] Oral 220 / 220 Anesthesia Amount 600 / 600 Other: # Voids 4 Date of Last Bowel Movement 10/10/18 10/10/18 Weight On Admission 93.44 kg Narrative: GENERAL: Well-nourished, well-developed pleasant male patient in NAD. SKIN: Warm and dry. No rash. CARDIOVASCULAR: Regular rate and rhythm. No murmur appreciated. RESPIRATORY: No accessory muscle use. Clear to auscultation. Breath sounds equal bilaterally. GASTROINTESTINAL: Abdomen soft, non-tender, nondistended. Normoactive bowel sounds x4. MUSCULOSKELETAL: No obvious deformities. Extremities without clubbing, cyanosis , or edema. NEUROLOGICAL: Awake and alert. No obvious cranial nerve deficits. Motor grossly within normal limits. Moving all extremities spontaneously. Normal speech. PSYCHIATRIC: Appropriate mood and affect; insight and judgment normal. Results Labs CBC & Chem 7: 10/11/18 01:45 10/11/18 01:45 Assessment and Plan (1) Syncope: Code(s): R55 - Syncope and collapse Status: Acute (2) GI bleed: Code(s): K92.2 - Gastrointestinal hemorrhage, unspecified Status: Acute (3) MADELEINE (acute kidney injury): Code(s): N17.9 - Acute kidney failure, unspecified Status: Acute Plan 68-year-old male with a PMH of HTN, Hyperlipidemia, COPD and h/o CAD who was brought to the ER by EMS after syncopal event witnessed by . Pt states he' s been having dizziness for approx 3 days. Does note recent episodes of black , tarry stools for several days. On ASA. Hemoccult + in ER. Syncope: Acute, likely secondary to dehydration/hypovolemia with GI bleeding. BP down to 87/52 -CT head/C-spine reviewed with no acute findings -EMR reviewed, Echo 09/01/18 w/ EF 55-60% -Monitor on telemetry -Troponin negative, no complaints of chest pain -Orthostatic vital signs negative -Given IV fluid hydration -Symptoms improved. GI bleed with Large Gastric Ulcer and Esophagitis: Suspect upper GI bleed. Hemoccult positive in the ED. -Hemoglobin 11.9, previously 13.0 on 09/02/18 -Started on IV Protonix drip -Hold patient's aspirin -Continue to trend H&H, Hgb decreasing - 11.9 --> 9.5 --> 10.0 --> 9.0 --> 8.8 -Transfuse as needed (patient with hx of cardiac disease and active bleeding) -GI consulted, s/p EGD on 10/10 which showed esophagitis and large gastric ulcer s/p clipping -Advanced to clear liquid diet -Await further recommendations from GI Diarrhea: patient reports ongoing diarrhea 3-4 times a day for a few months now -stool studies pending -Cdiff negative -lactinex bid MADELIENE: Creatinine 1.56, previously 1.01 on 09/02/18, suspect secondary to dehydration -Give IVF for hydration -Avoid nephrotoxins -monitor I/O -Repeat labs show improvement with Cr 0.99 today Alcohol Use: 4 drinks/day -Alcohol level 139 upon arrival -MCV 109.6, likely chronic alcohol use -CIWA, Seizure Precautions, MVT/Thiamine/Folate replacement. Hypertension: with hypotensive episodes during admission -hold patient's losartan, HCTZ, imdur -monitor BP, add antihypertensives as needed Hyperlipidemia: chronic -continue patient's statin CAD: chronic, hx of stent x1 placed in May 2016 -no complaints of chest pain, troponin negative -holding aspirin due to GI bleed -continue BB if BP will allow -holding Imdur due to hypotension DVT Prophylaxis: teds/SCDs, Pharmacologic contraindication in light of GI Bleed Attending Attestation patient was seen and examined today. resting comfortably with no acute distress. no active bleeding. on exam; abdomen is benign. had PUD on EGD. will continue to monitor H/H. dc home if H/H stable and cleared by GI. Progress Note: Quality VTE Deep Vein Thrombosis/Pulmonary Embolism Present on Admission: No _ (1) GI bleed Qualifiers: GI bleed type/associated pathology: Gastritis type:
[2018-10-11] MEDS: Multivitamin/Minerals Therapeutic Tablet PO SCH (08:13)
[2018-10-11] MEDS: Lactobacillus Acidophilus/L. Spores Tablet PO SCH ×2 (08:13→20:14)
[2018-10-11] MEDS: Folic Acid 1 MG Tablet PO SCH (08:13)
[2018-10-11] MEDS: Tiotropium Bromide 18 MCG/ACT Inhaler INH SCH (08:16)
[2018-10-11] MEDS: Senna/Docusate Sodium 8.6/50 MG Tablet PO SCH ×2 (08:16→20:16)
[2018-10-11] MEDS: Metoprolol Tartrate 25 MG Tablet PO SCH ×2 (10:40→20:14)
[2018-10-11 11:07] LABS: Hematocrit 25.9 % (39.0-51.0); Hemoglobin 9.1 gm/dL (13.0-17.0)
--- NOTE | 2018-10-11 21:33 | P.PNADD ---
Addendum to Inpatient Note Reason for Addendum: Additional Documentation (I reviewed the below documentation. Josue Ford) Additional information: S: Michael Called at Approximately 21:15 Nursing reports that patient was attempting to get out of bed when he had a large vomitus of clotted blood. Vital signs were within normal limits at the time. He did not have any syncopal episode. He denied any pain at the time. Per nursing report patient was due to go home today. He has no complaints on my exam. Patient was admitted for a syncopal episode after having repeat episodes of melena at home. Had an EGD performed approximately 2 days ago with a noted deep ulcer, no active bleeding, Hemoclip was placed. Hemoglobin has stabilized at approximately 9. IV access was lost today, patient has not been on his Protonix drip. He has not had any vomiting or syncopal episodes since his admission here. O: Vital signs: temp 97.7, heart rate 84 bpm, O2 saturation 96% on room air, BP 108 /58 General: Well-appearing pale male lying on his side in bed. Large amount of clotted bloody vomitus noted on the sheets. Cardiovascular: Regular rate and rhythm, no murmurs heard Respiratory: Clear to auscultation bilaterally, equal breath sounds Abdomen: Non-tender nondistended, positive bowel sounds Neuro: Alert and oriented, patient is communicative and able answer all questions AP: -Patient appears to be stable on exam -Call was placed to Dr. Mancera with GI who requests stat H&H to determine whether he will take patient for EGD tonight. -Protonix drip -D5 half-normal saline -Nursing staff to inform patient's primary team Seen and discussed with Dr. Tirado
--- NOTE | 2018-10-11 21:55 | P.PNGI ---
Subjective Interval history: Patient eager to leave and go home denies any active bleeding tolerated oral intake Physical Exam Vital signs: Vital Signs 10/10/18 23:28 10/11/18 00:00 10/11/18 04:00 Temperature 98.5 F 98.2 F Pulse Rate 79 95 H 78 Respiratory Rate 20 20 Blood Pressure 108/54 L 133/58 L Pulse Oximetry 94 L 96 10/11/18 04:36 10/11/18 07:51 10/11/18 12:00 Temperature 96.6 F L 96.3 F L Pulse Rate 71 71 65 Respiratory Rate 15 16 Blood Pressure 138/65 112/55 L Pulse Oximetry 95 96 10/11/18 16:00 10/11/18 20:00 10/11/18 20:04 Temperature 96.4 F L 98.3 F Pulse Rate 70 85 Respiratory Rate 15 16 Blood Pressure 142/58 H 100/55 L 151/66 H Pulse Oximetry 98 96 Intake & Output 10/11/18 10/11/18 10/12/18 06:59 18:59 06:59 Intake Total 1320 / 1320 1100 / 1100 Balance 1320 / 1320 1100 / 1100 Weight 93 kg Intake: IV 1100 / 1100 1100 / 1100 Protonix Inj 80 MG In NS Inj 100 / 100 100 / 100 100 ML @ 10 mls/hr IV.CONT CONT PATTI Rx#:[id number] NS Inj 1,000 ML @ 100 mls/hr IV 1000 / 1000 1000 / 1000 .CONT .Q10H PATTI Rx#:[id number] Oral 220 / 220 Other: # Voids 4 3 Date of Last Bowel Movement 10/10/18 - Constitutional no acute distress - Routine HEENT Exam Head: Present: normocephalic Eye: Present: EOMI ENT: Present: mucous membranes moist - Routine Neck Exam Present: supple - Routine Respiratory Exam Present: CTA bilaterally. Absent: accessory muscle use - Routine Cardiovascular Exam Present: RRR - Routine Abdominal Exam Present: soft, normoactive bowel sounds. Absent: tenderness, distended, rebound - Routine Extremities Exam Absent: cyanosis, clubbing Results - Labs CBC & Chem 7: 10/11/18 10:20 10/11/18 01:45 Laboratory Results - last 24 hr 10/11/18 10/11/18 10/11/18 01:45 01:45 10:20 Hgb 8.8 L 9.1 L Hct 25.5 L 25.9 L Sodium 144 Potassium 3.5 Chloride 110 H Carbon Dioxide 24.5 Anion Gap 10 BUN 23 H Creatinine 0.99 Estimated GFR 75 L POC Glucose Random Glucose 93 Calcium 7.4 L* Calcium Adj for Albumin 8.4 L Albumin 2.8 L 10/11/18 10/11/18 11:59 17:18 Hgb Hct Sodium Potassium Chloride Carbon Dioxide Anion Gap BUN Creatinine Estimated GFR POC Glucose 114 H 139 H Random Glucose Calcium Calcium Adj for Albumin Albumin Microbiology 10/10/18 15:38 Stool Enteric Pathogens (PCR) - Final Assessment and Plan (1) GI bleed Status: Acute Code(s): K92.2 - Gastrointestinal hemorrhage, unspecified - Plan Patient is a pleasant 68-year-old male with past medical history significant for hypertension, hyperlipidemia, COPD and coronary artery disease, ND with stent placement 2015. Patient presented to [facility] emergency room post syncopal episode last evening. Patient states he was sitting at the dinner table with his when he suddenly had a syncopal event, fell from chair and hit head sustaining a small laceration to right brow. CT head with no acute findings. CT C-spine negative. Patient was found to be Hemoccult positive on arrival and is currently on a Protonix drip. Patient does endorse 3 -4 days of black tarry stools with generalized weakness. Patient endorses that he takes aspirin 81 mg p.o. daily. Troponin less than 0.02. Hemoglobin 11.9 hematocrit 34 on arrival--this a.m. hemoglobin 9.5 hematocrit 27. 12-lead normal sinus rhythm without obvious ischemic change noted. Of note, patient's alcohol level was 139 on arrival. During consult, patient awake alert oriented and is currently on CIWA protocol. Patient states that he takes Zantac occasionally for heartburn. He denies dysphagia or odynophagia. Denies any known family history for gastrointestinal diseases. Patient denies tobacco use, states he quit smoking cigarettes 6 months ago. Patient does admit to drinking 2-3 alcoholic beverages that include bourbon daily with dinner. Chart review reveals patient admits to taking some [id number] medication for sexual performance enhancement, patient unable to recall name of the medication. Patient denies use of NSAIDs other than above-noted aspirin. Denies any past history of having had an EGD. Does report last colonoscopy done in May 2018 in [place] which revealed polyps and no other remarkable findings per patient. Our service has been consulted to evaluate patient for GI bleed GI axinp-[id number] endorses 3 days of black tarry stools with generalized weakness. States he takes aspirin 81 mg p.o. daily and denies use of other NSAIDs. Hemoglobin 11.9 hematocrit 34 on arrival. This a.m. hemoglobin 9.5 hematocrit 27. EtOH abuse-patient endorses long history of daily drinking of 2-3 alcoholic beverages nightly Acute kidney injury-BUN 51 creatinine 1.5 on arrival, BUN 39 creatinine 1.16 post 2 L bolus Plan Large gastric ulcer was noted requiring therapy patient at risk for recurrent bleeding we will continue to monitor -Avoid anticoagulants -Avoid NSAIDs -Monitor hemoglobin and hematocrit -Monitor for active bleeding -Transfuse as needed -Continue pantoprazole drip -Supportive care -Further recommendations to follow I had a lengthy discussion with both the patient and his they had multiple questions that I answered Following the evaluation as I was dictating this note I got a call from the nurse stating that he is actively vomiting up blood and so we will reevaluate
[2018-10-11 22:04] LABS: Hematocrit 21.5 % (39.0-51.0); Hemoglobin 7.4 gm/dL (13.0-17.0)
[2018-10-11] MEDS: KCL 20 mEq/D5W/NaCl 0.45% Inj 1,000 ML IV.SIG SCH (22:47)
[2018-10-12] MEDS: Pantoprazole Inj 80 MG in Sodium Chlor 0.9% Inj 100 ML IV.CONT SCH ×4 (01:19→20:28)
[2018-10-12] MEDS ORDERED: Chlorhexidine Gluconate 2% 1 Pack (2 Cloths) TOPICAL PRN (04:00)
[2018-10-12] MEDS: Sod Chloride 0.9% Inj 1,000 ML IV.CONT SCH ×2 (04:18→18:08)
[2018-10-12] MEDS: Chlorhexidine Gluconate 2% 1 Pack (2 Cloths) TOPICAL SCH (04:18)
--- NOTE | 2018-10-12 08:34 | P.PNIM ---
Subjective Interval history: Patient is seen and examined this morning. Afebrile vital signs stable. Acute anemia due to GI bleed. Receiving IV blood transfusion at time of exam. Awaiting further workup by gastroenterology for acute GI bleed. Patient is stable and doing well at this time. Physical Exam Vital signs: Vital Signs 10/11/18 12:00 10/11/18 16:00 10/11/18 20:00 Temperature 96.3 F L 96.4 F L 98.3 F Pulse Rate 65 70 85 Respiratory Rate 16 15 16 Blood Pressure 112/55 L 142/58 H 100/55 L Pulse Oximetry 96 98 96 10/11/18 20:04 10/12/18 01:00 10/12/18 02:00 Temperature 98.5 F Pulse Rate 81 76 Respiratory Rate 19 19 Blood Pressure 151/66 H 103/57 L 83/52 L Pulse Oximetry 97 97 10/12/18 02:18 10/12/18 02:36 10/12/18 03:00 Temperature 98.6 F 98.6 F Pulse Rate 75 76 72 Respiratory Rate 18 19 16 Blood Pressure 83/52 L 139/66 133/62 Pulse Oximetry 97 98 98 10/12/18 04:00 10/12/18 05:00 10/12/18 05:21 Temperature 98.2 F 98.4 F Pulse Rate 75 78 77 Respiratory Rate 16 26 H 18 Blood Pressure 144/66 H 144/65 H 144/65 H Pulse Oximetry 98 98 98 10/12/18 05:37 10/12/18 06:00 10/12/18 07:00 Temperature 98.0 F Pulse Rate 80 74 79 Respiratory Rate 17 16 23 Blood Pressure 144/65 H 134/63 147/66 H Pulse Oximetry 96 99 10/12/18 08:00 Temperature 98.5 F Pulse Rate 79 Respiratory Rate 19 Blood Pressure 149/74 H Pulse Oximetry 98 Intake & Output 10/11/18 10/12/18 10/12/18 18:59 06:59 18:59 Intake Total 1100 / 1100 2588.6 / 2588.6 Output Total 500 / 500 Balance 1100 / 1100 2088.6 / 2088.6 Weight 92.8 kg Intake: IV 1100 / 1100 1674.6 / 1674.6 Protonix Inj 80 MG In NS Inj 100 / 100 48.6 / 48.6 100 ML @ 10 mls/hr IV.CONT Q10H PATTI Rx#:[id number] NS Inj 1,000 ML @ 100 mls/hr IV 1000 / 1000 1000 / 1000 .CONT .Q10H PATTI Rx#:[id number] D5W/1/2NS + KCL 20 mEq Inj 1, 626 / 626 000 ML @ 100 mls/hr IV.SIG . Q10H PATTI Rx#:[id number] Oral 0 / 0 Intake (Blood Product) Amt 400 / 400 Rbc As-3 Leukoreduced Unit 400 / 400 [id number] Rbc As-3 Leukoreduced Unit 0 / 0 [id number] Mass Transfusion Protocol 514 / 514 Output: Urine 500 / 500 Other: # Voids 3 2 Date of Last Bowel Movement 10/12/18 # Bowel Movements 1 # Emeses 3 Narrative: GENERAL: Well-nourished, well-developed pleasant male patient in [facility]. SKIN: Warm and dry. No rash. CARDIOVASCULAR: Regular rate and rhythm. No murmur appreciated. RESPIRATORY: No accessory muscle use. Clear to auscultation. Breath sounds equal bilaterally. GASTROINTESTINAL: Abdomen soft, non-tender, nondistended. Normoactive bowel sounds x4. MUSCULOSKELETAL: No obvious deformities. Extremities without clubbing, cyanosis , or edema. No pain with squeezing the calves bilaterally NEUROLOGICAL: Awake and alert. No obvious cranial nerve deficits. Motor grossly within normal limits. Moving all extremities spontaneously. Normal speech. PSYCHIATRIC: Appropriate mood and affect; insight and judgment normal. Results - Labs CBC & Chem 7: 10/11/18 21:45 10/11/18 01:45 Laboratory Results - last 24 hr 10/11/18 10/11/18 10/11/18 10:20 11:59 17:18 Hgb 9.1 L Hct 25.9 L POC Glucose 114 H 139 H Nasal Screen MRSA (PCR) Blood Type Antibody Screen MTS Gel Crossmatch 10/11/18 10/11/18 10/12/18 21:45 22:37 00:15 Hgb 7.4 L Hct 21.5 L POC Glucose 129 H Nasal Screen MRSA (PCR) Not detected Blood Type Antibody Screen MTS Gel Crossmatch 10/12/18 00:32 Hgb Hct POC Glucose Nasal Screen MRSA (PCR) Blood Type A Positive Antibody Screen Negative MTS Gel Crossmatch See Detail Microbiology 10/10/18 15:38 Stool Enteric Pathogens (PCR) - Final Assessment and Plan - Assessment (1) Syncope Code(s): R55 - Syncope and collapse Status: Acute (2) GI bleed Code(s): K92.2 - Gastrointestinal hemorrhage, unspecified Status: Acute (3) MADELEINE (acute kidney injury) Code(s): N17.9 - Acute kidney failure, unspecified Status: Acute - Plan 68-year-old male with a PMH of HTN, Hyperlipidemia, COPD and h/o CAD with active GI bleed Syncope: Acute, likely secondary to dehydration/hypovolemia with GI bleeding. -CT head/C-spine reviewed with no acute findings -EMR reviewed, Echo 09/01/18 w/ EF 55-60% -Monitor on telemetry -Troponin negative, no complaints of chest pain -Orthostatic vital signs negative -Given IV fluid hydration -Symptoms improved. GI bleed with Large Gastric Ulcer and Esophagitis: Suspect upper GI bleed. Hemoccult positive in the ED. -Hemoglobin 11.9, previously 13.0 on 09/02/18 -Started on IV Protonix drip -Hold patient's aspirin -Continue to trend H&H, most recent hemoglobin hematocrit was 7.4/21.5 respectively. Currently receiving blood transfusion -Transfuse as needed (patient with hx of cardiac disease and active bleeding) -GI consulted, s/p EGD on 10/10 which showed esophagitis and large gastric ulcer s/p clipping -Advanced to clear liquid diet -Await further recommendations from GI Diarrhea: patient reports ongoing diarrhea 3-4 times a day for a few months now -stool studies pending -Cdiff negative -lactinex bid MADELEINE: Resolving at this time -Give IVF for hydration -Avoid nephrotoxins -monitor I/O Alcohol Use: 4 drinks/day -Alcohol level 139 upon arrival -MCV 109.6, likely chronic alcohol use -CIWA, Seizure Precautions, MVT/Thiamine/Folate replacement. Hypertension: with hypotensive episodes during admission -hold patient's losartan, HCTZ, imdur -monitor BP, add antihypertensives as needed Hyperlipidemia: chronic -continue patient's statin CAD: chronic, hx of stent x1 placed in May 2016 -no complaints of chest pain, troponin negative -holding aspirin due to GI bleed -continue BB if BP will allow -holding Imdur due to hypotension DVT Prophylaxis: teds/SCDs, Pharmacologic contraindication in light of GI Bleed Code Status: Full code Discharge Planning: Pending further workup by gastroenterology
[2018-10-12] MEDS ORDERED: Non-Formulary Drug (Losartan-Hydrochlorothiazide [Losartan-Hydrochlorothiazide] 1 TAB) PO SCH (09:00)
[2018-10-12] MEDS: Metoprolol Tartrate 25 MG Tablet PO SCH ×2 (09:01→21:07)
[2018-10-12] MEDS: Folic Acid 1 MG Tablet PO SCH (09:16)
[2018-10-12] MEDS: Senna/Docusate Sodium 8.6/50 MG Tablet PO SCH ×2 (09:16→21:08)
[2018-10-12] MEDS: Lactobacillus Acidophilus/L. Spores Tablet PO SCH ×2 (09:16→21:07)
[2018-10-12] MEDS: KCL 20 mEq/D5W/NaCl 0.45% Inj 1,000 ML IV.SIG SCH ×2 (09:25→18:35)
[2018-10-12] MEDS: Tiotropium Bromide 18 MCG/ACT Inhaler INH SCH (09:40)
[2018-10-12] MEDS: Multivitamin/Minerals Therapeutic Tablet PO SCH (09:41)
[2018-10-12] MEDS ORDERED: Midazolam Inj 5 MG/ML 1 ML Vial IV.PUSH STA (11:05)
[2018-10-12] MEDS ORDERED: fentaNYL Citrate Inj 100 MCG/2 ML Ampul IV.PUSH STA (11:06)
[2018-10-12 11:08] LABS: Hematocrit 27.3 % (39.0-51.0); Hemoglobin 9.6 gm/dL (13.0-17.0); Mean Corpuscular Hemoglobin 35.7 pg (27.0-34.0); Mean Corpuscular Volume 101.8 fL (80.0-100.0); Mean Platelet Volume 8.3 fL (7.0-11.0); Platelet Count 87 th/mm3 (150-450); Red Blood Count 2.68 mil/mm3 (4.50-5.90); Red Cell Distribution Width 20.3 % (11.6-17.2); White Blood Count 5.3 th/mm3 (4.0-11.0)
[2018-10-12] MEDS ORDERED: fentaNYL Citrate Inj 100 MCG/2 ML Ampul ONE (11:11)
[2018-10-12] MEDS ORDERED: Midazolam Inj 5 MG/ML 1 ML Vial ONE (11:11)
[2018-10-12 11:21] LABS: Albumin 2.6 g/dL (3.4-5.0); Anion Gap 8 meq/L (5-15); Aspartate Aminotransferase 23 U/L (15-37); Blood Urea Nitrogen 19 mg/dL (7-18); Calcium 7.7 mg/dL (8.5-10.1); Carbon Dioxide 22.4 meq/L (21.0-32.0); Chloride 114 meq/L (98-107); Glomerular Filtration Rate Greater Than 89 mL/min (>89); Glucose,Random 110 mg/dL (74-106); Potassium 3.9 meq/L (3.5-5.1); Sodium 144 meq/L (136-145)
[2018-10-12 11:22] LABS: Alanine Aminotransferase 28 U/L (12-78)
[2018-10-12 11:24] LABS: Alkaline Phosphatase 60 U/L (45-117); Total Protein 5.2 g/dL (6.4-8.2)
--- NOTE | 2018-10-12 11:57 | P.PCN ---
Date of procedure: 10/12/18 Pre-op diagnosis: GI bleed, gastric ulcer Procedure: PROCEDURE PERFORMED EGD with biopsy and clip placement and cauterization this was done at bedside in the ICU PROCEDURE: The procedure, risks and benefits were discussed with Patient/POA and informed consent was obtained. Anesthesia sedated Patient with Diprivan. Patient was placed in the left lateral decubitus position. EGD: The Pentax videoscope was introduced through the oropharynx and advanced to the second portion of the duodenum under direct visualization. Retroflexion was performed in the stomach. FINDINGS: The esophagus this appeared to be unremarkable and within normal limits The stomach there was a large antral mass probably more inflammatory with what looks like a fistulous opening with an ulceration and a visible vessel biopsies were taken from this mass clips were applied to the edge of the fistula in hopes we can capture the visible vessel at the edge of the fistula opening we were not able to do that therefore we cauterized and we were able to cauterize the vessel well The duodenum this appeared to be irregular with nodular formations in the duodenal bulb and sweep etiology unclear this too was biopsied the rest of the duodenum was unremarkable ESTIMATED BLOOD LOSS: None SPECIMENS REMOVED: Antral and duodenal biopsies COMPLICATIONS: None IMPRESSION: Antral mass 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
[2018-10-12] MEDS ORDERED: Diatrizoate Meglum/Diatrizoate Sod Liq 9 ML UDC PO ONE (12:30)
--- NOTE | 2018-10-12 19:50 | CT ---
EXAM DATE: 10/12/2018 7:38 PM EST AGE/SEX: 68 years / Male INDICATIONS: Evaluate for possible gastric antral fistula. CLINICAL DATA: This is the patient's initial encounter. Patient reports that signs and symptoms have been present for 1 day and indicates a pain score of 0/10. MEDICAL/SURGICAL HISTORY: Cerebrovascular disease. Hypertension. Chronic obstructive pulmonar y disease. Coronary artery stent. ORAL CONTRAST: Prescribed oral contrast ingested. RADIATION DOSE: 17.33 CTDI (mGy) COMPARISON: No prior exams available for comparison. TECHNIQUE: Multiple contiguous axial images were obtained through the abdomen and pelvis following b olus infusion of 95 ml Omnipaque 350 (iohexol) nonionic water-soluble contrast as a single exam dos e. Prescribed oral contrast ingested. Delayed phase imaging after additional swallowing of Gastrograf in was also performed. Using automated exposure control and adjustment of the mA and/or kV according to patient size, radiation dose was kept as low as reasonably achievable to obtain optimal diagnostic quality images. DICOM format image data is available electronically for review and comparison. FINDINGS: Lower Lungs: Subsegmental consolidation in the dependent right lower lung and tiny right pleural effu truong. Liver: The liver has a homogeneous density without space-occupying lesion. There is no dilation of th e biliary tree. Spleen: Homogeneous density without enlargement. Pancreas: Unremarkable without mass or calcification. Kidneys: Normal in size and shape. No evidence of mass or hydronephrosis. Cortical cyst left kidney measuring 1 cm. Adrenal Glands: Unremarkable. Aorta: The aorta and proximal iliac vessels are grossly unremarkable without aneurysmal dilation. Bowel/Mesentery: No dilated loops of small or large bowel. Oral contrast passes through to the rectu m. On the delayed phase images with gastric, contrast, some contrast is seen centrally within the 2.6 cm antral mass, adjacent to the 2 hemoclips at presumed site of biopsy. No extraluminal extravasatio n of contrast seen. No perigastric or periduodenal fluid. Abdominal Wall: Intact. Retroperitoneum: No evidence of adenopathy in the retrocrural, para-aortic, or deep pelvic regions. Bladder: Contours are smooth. Reproductive Organs: No abnormal masses or calcifications seen. Inguinal: The inguinal region is unremarkable without evidence of adenopathy. Bony Structures: Unremarkable. CONCLUSION: 1. 2.6 cm intraluminal mass recently biopsied. No extravasation of contrast outside the stomach or d uodenum. Electronically signed by: Michael Doll MD Board Certified Radiologist 10/12/2018 7:49 PM EST
[2018-10-13] MEDS: Sod Chloride 0.9% Inj 1,000 ML IV.CONT SCH (00:02)
[2018-10-13] MEDS: Pantoprazole Inj 80 MG in Sodium Chlor 0.9% Inj 100 ML IV.CONT SCH ×2 (02:00→06:49)
[2018-10-13] MEDS: Chlorhexidine Gluconate 2% 1 Pack (2 Cloths) TOPICAL SCH (03:34)
[2018-10-13] MEDS: KCL 20 mEq/D5W/NaCl 0.45% Inj 1,000 ML IV.SIG SCH ×2 (06:49→16:52)
[2018-10-13 06:51] LABS: Hematocrit 24.4 % (39.0-51.0); Hemoglobin 8.6 gm/dL (13.0-17.0); Mean Corpuscular HGB Conc 35.4 % (32.0-36.0); Mean Corpuscular Hemoglobin 34.6 pg (27.0-34.0); Mean Corpuscular Volume 97.7 fL (80.0-100.0); Mean Platelet Volume 8.3 fL (7.0-11.0); Platelet Count 89 th/mm3 (150-450); Red Cell Distribution Width 19.6 % (11.6-17.2); White Blood Count 4.2 th/mm3 (4.0-11.0)
[2018-10-13 07:18] LABS: Albumin 2.7 g/dL (3.4-5.0); Anion Gap 8 meq/L (5-15); Aspartate Aminotransferase 33 U/L (15-37); Blood Urea Nitrogen 10 mg/dL (7-18); Calcium 7.5 mg/dL (8.5-10.1); Carbon Dioxide 24.3 meq/L (21.0-32.0); Chloride 110 meq/L (98-107); Glucose,Random 109 mg/dL (74-106); Potassium 3.5 meq/L (3.5-5.1); Sodium 142 meq/L (136-145)
[2018-10-13 07:24] LABS: Alanine Aminotransferase 33 U/L (12-78); Alkaline Phosphatase 61 U/L (45-117); Glomerular Filtration Rate 88 mL/min (>89); Total Protein 5.1 g/dL (6.4-8.2)
--- NOTE | 2018-10-13 08:15 | P.PNIM ---
Subjective Interval history: Follow up for GI bleed, syncope. Patient is currently doing well. No further episodes of GI bleed. Denies any chest pain, shortness of breath, fever or chills. Inquires about going home, they have a flight to catch tomorrow at 3 PM. Physical Exam Vital signs: Vital Signs 10/12/18 08:56 10/12/18 09:00 10/12/18 10:00 Temperature 98.5 F Pulse Rate 75 76 72 Respiratory Rate 19 20 Blood Pressure 149/74 H 142/59 H 149/67 H Pulse Oximetry 97 98 98 10/12/18 11:00 10/12/18 11:27 10/12/18 11:30 Temperature Pulse Rate Respiratory Rate Blood Pressure 144/76 H 139/58 L 143/65 H Pulse Oximetry 10/12/18 11:41 10/12/18 12:00 10/12/18 12:15 Temperature 98.4 F Pulse Rate 79 79 73 Respiratory Rate 20 18 19 Blood Pressure 113/54 L 126/58 L 110/56 L Pulse Oximetry 95 94 L 95 10/12/18 12:30 10/12/18 12:45 10/12/18 13:00 Temperature Pulse Rate 75 71 67 Respiratory Rate 22 20 17 Blood Pressure 116/61 113/55 L 105/58 L Pulse Oximetry 95 95 95 10/12/18 13:15 10/12/18 13:30 10/12/18 13:45 Temperature Pulse Rate 68 70 73 Respiratory Rate 17 18 17 Blood Pressure 106/59 L 119/57 L 120/58 L Pulse Oximetry 97 99 100 10/12/18 14:00 10/12/18 15:00 10/12/18 16:00 Temperature 98.4 F Pulse Rate 71 76 69 Respiratory Rate 19 15 21 Blood Pressure 108/55 L 140/64 138/66 Pulse Oximetry 97 95 100 10/12/18 17:00 10/12/18 18:00 10/12/18 19:00 Temperature Pulse Rate 76 73 73 Respiratory Rate 17 17 24 Blood Pressure 120/60 116/63 Pulse Oximetry 99 99 99 10/12/18 20:00 10/12/18 21:00 10/12/18 22:00 Temperature 98.2 F Pulse Rate 77 77 67 Respiratory Rate 20 18 17 Blood Pressure 123/58 L 118/56 L 119/62 Pulse Oximetry 98 89 L 98 02/24/19 23:00 10/13/18 00:00 10/13/18 01:00 Temperature 98.5 F Pulse Rate 67 65 69 Respiratory Rate 18 15 16 Blood Pressure 94/55 L 125/70 127/62 Pulse Oximetry 96 98 95 10/13/18 02:00 10/13/18 03:00 10/13/18 04:00 Temperature Pulse Rate 71 65 65 Respiratory Rate 17 16 16 Blood Pressure 138/65 112/59 L 93/48 L Pulse Oximetry 97 96 97 10/13/18 05:00 10/13/18 06:00 Temperature 98.5 F Pulse Rate 68 71 Respiratory Rate 15 16 Blood Pressure 138/67 124/64 Pulse Oximetry 100 95 Intake & Output 10/12/18 10/13/18 10/13/18 18:59 06:59 18:59 Intake Total 2585.4 / 2585.4 1151 / 1151 Output Total 1550 / 1550 1400 / 1400 Balance 1035.4 / 1035.4 -249 / -249 Weight 93.5 kg Intake: IV 1525.4 / 1525.4 1131 / 1131 Protonix Inj 80 MG In NS Inj 151.4 / 151.4 131 / 131 100 ML @ 10 mls/hr IV.CONT Q10H PATTI Rx#:[id number] D5W/1/2NS + KCL 20 mEq Inj 1, 1374 / 1374 1000 / 1000 000 ML @ 100 mls/hr IV.SIG . Q10H PATTI Rx#:[id number] Oral 1060 / 1060 20 / 20 Intake (Blood Product) Amt 0 / 0 Rbc As-3 Leukoreduced Unit 0 / 0 [id number] Output: Urine 800 / 800 Stool 50 / 50 Urine/Stool Mix 1500 / 1500 600 / 600 Other: # Voids 1 2 Date of Last Bowel Movement 10/12/18 10/13/18 # Bowel Movements 1 2 Narrative: GENERAL: Alert, oriented x3, NAD. SKIN: Warm and dry. HEAD: Normocephalic. EYES: No scleral icterus. No injection or drainage. NECK: Supple, trachea midline. No JVD or lymphadenopathy. CARDIOVASCULAR: Regular rate and rhythm without murmurs, gallops, or rubs. RESPIRATORY: Breath sounds equal bilaterally. No accessory muscle use. GASTROINTESTINAL: Abdomen soft, non-tender, nondistended. MUSCULOSKELETAL: No cyanosis, or edema. BACK: Nontender without obvious deformity. No CVA tenderness. Results Labs CBC & Chem 7: 10/13/18 06:07 10/13/18 06:07 Imaging Imaging: Impressions Abdomen/Pelvis CT 10/12/18 11:51 CONCLUSION: 1. 2.6 cm intraluminal mass recently biopsied. No extravasation of contrast outside the stomach or duodenum. Assessment and Plan (1) Syncope: Code(s): R55 - Syncope and collapse Status: Acute (2) GI bleed: Code(s): K92.2 - Gastrointestinal hemorrhage, unspecified Status: Acute (3) MADELEINE (acute kidney injury): Code(s): N17.9 - Acute kidney failure, unspecified Status: Acute Plan This is a 68-year-old male with a PMH of HTN, Hyperlipidemia, COPD and h/o CAD who was brought to the ER by EMS after syncopal event witnessed by . He reported dizziness for 3 days prior to this admission. He also reported black tarry stools for several days. Patient is on aspirin at home. On arrival his hemoglobin was 11.9, previously 13.0 in August 2018. He was also found to have a creatinine 1.56, previously 1.01 in August 2018. Hemoccult was positive. Acute Syncope -Likely secondary to dehydration/hypovolemia with GI bleeding. -CT head/C-spine reviewed with no acute findings -Echo 09/01/18 w/ EF 55-60% -Troponin negative, no complaints of chest pain -Orthostatic vital signs negative Acute GI blood loss symptomatic anemia -Large Gastric Ulcer and Esophagitis (EGD 10/10/2018) -Patient had a significant upper GI bleed on 10/11/2018 and rapid response activated. -EGD on 10/12/2018 shows Antral mass, antral ulcer within fistula with a visible vessel -Clip placement and cauterization performed on 10/12/2018. -Hemoglobin 11.9 on the day of admission 10/09/2018. Hemoglobin dropped to 7.4 on 10/11/2018 and required 2 units of transfusions. Hemoglobin dropped from 9.6 --> 8.6. We can switch to Protonix twice daily p.o. and also start sucralfate. -Check H&H at 1pm. Diarrhea - patient reports ongoing diarrhea 3-4 times a day for a few months now -stool studies pending -Cdiff negative -lactinex bid Acute kidney injury Creatinine improved from 1.56 to 0.86. Alcohol Use - 4 drinks/day -Alcohol level 139 upon arrival -MCV 109.6, likely chronic alcohol use -CIWA, Seizure Precautions, MVT/Thiamine/Folate replacement. Advised patient to not drink alcohol for at least several weeks. Hyperlipidemia Hypertension -continue patient's statin, losartan, HCTZ CAD: chronic, hx of stent x1 placed in May 2016 -no complaints of chest pain, troponin negative -holding aspirin due to GI bleed Continue metoprolol tartrate 12.5 mg twice daily. Patient wants to go home today. His flight is tomorrow at 3pm. I will check with GI - if they have no reservation, we will discharge patient home later today assuming his Hgb at 1pm is stable. Full code. DVT Prophylaxis: teds/SCDs, Pharmacologic contraindication in light of GI Bleed Progress Note: Quality VTE Deep Vein Thrombosis/Pulmonary Embolism Present on Admission: No _ (1) GI bleed Qualifiers: GI bleed type/associated pathology: Gastritis type: (2) Syncope Qualifiers: Encounter type: Syncope type:
[2018-10-13] MEDS: Sucralfate 1 GM Tablet PO SCH ×4 (10:13→21:26)
[2018-10-13] MEDS: Metoprolol Tartrate 25 MG Tablet PO SCH ×2 (10:13→21:24)
[2018-10-13] MEDS: Multivitamin/Minerals Therapeutic Tablet PO SCH (10:13)
[2018-10-13] MEDS: Lactobacillus Acidophilus/L. Spores Tablet PO SCH ×2 (10:14→21:22)
[2018-10-13] MEDS: Folic Acid 1 MG Tablet PO SCH (10:14)
[2018-10-13] MEDS: Senna/Docusate Sodium 8.6/50 MG Tablet PO SCH ×2 (10:15→21:23)
[2018-10-13] MEDS: Tiotropium Bromide 18 MCG/ACT Inhaler INH SCH (10:17)
--- NOTE | 2018-10-13 12:44 | P.PNGI ---
Subjective Interval history: Patient awake and alert No reported bleeding overnight Post EGD with clip Physical Exam Vital signs: Vital Signs 10/12/18 12:45 10/12/18 13:00 10/12/18 13:15 Temperature Pulse Rate 71 67 68 Respiratory Rate 20 17 17 Blood Pressure 113/55 L 105/58 L 106/59 L Pulse Oximetry 95 95 97 10/12/18 13:30 10/12/18 13:45 10/12/18 14:00 Temperature Pulse Rate 70 73 71 Respiratory Rate 18 17 19 Blood Pressure 119/57 L 120/58 L 108/55 L Pulse Oximetry 99 100 97 10/12/18 15:00 10/12/18 16:00 10/12/18 17:00 Temperature 98.4 F Pulse Rate 76 69 76 Respiratory Rate 15 21 17 Blood Pressure 140/64 138/66 120/60 Pulse Oximetry 95 100 99 10/12/18 18:00 10/12/18 19:00 10/12/18 20:00 Temperature 98.2 F Pulse Rate 73 73 77 Respiratory Rate 17 24 20 Blood Pressure 116/63 123/58 L Pulse Oximetry 99 99 98 10/12/18 21:00 10/12/18 22:00 10/12/18 23:00 Temperature Pulse Rate 77 67 67 Respiratory Rate 18 17 18 Blood Pressure 118/56 L 119/62 94/55 L Pulse Oximetry 89 L 98 96 10/13/18 00:00 10/13/18 01:00 10/13/18 02:00 Temperature 98.5 F Pulse Rate 65 69 71 Respiratory Rate 15 16 17 Blood Pressure 125/70 127/62 138/65 Pulse Oximetry 98 95 97 10/13/18 03:00 10/13/18 04:00 10/13/18 05:00 Temperature 98.5 F Pulse Rate 65 65 68 Respiratory Rate 16 16 15 Blood Pressure 112/59 L 93/48 L 138/67 Pulse Oximetry 96 97 100 10/13/18 06:00 10/13/18 08:15 10/13/18 10:10 Temperature Pulse Rate 71 69 88 Respiratory Rate 16 Blood Pressure 124/64 Pulse Oximetry 95 Intake & Output 10/12/18 10/13/18 10/13/18 18:59 06:59 18:59 Intake Total 2585.4 / 2585.4 1151 / 1151 Output Total 1550 / 1550 1400 / 1400 Balance 1035.4 / 1035.4 -249 / -249 Weight 93.5 kg Intake: IV 1525.4 / 1525.4 1131 / 1131 Protonix Inj 80 MG In NS Inj 151.4 / 151.4 131 / 131 100 ML @ 10 mls/hr IV.CONT Q10H PATTI Rx#:[id number] D5W/1/2NS + KCL 20 mEq Inj 1, 1374 / 1374 1000 / 1000 000 ML @ 100 mls/hr IV.SIG . Q10H PATTI Rx#:[id number] Oral 1060 / 1060 20 / 20 Intake (Blood Product) Amt 0 / 0 Rbc As-3 Leukoreduced Unit 0 / 0 [id number] Output: Urine 800 / 800 Stool 50 / 50 Urine/Stool Mix 1500 / 1500 600 / 600 Other: # Voids 1 2 Date of Last Bowel Movement 10/12/18 10/13/18 10/13/18 # Bowel Movements 1 2 - Constitutional no acute distress, cooperative - Routine HEENT Exam Head: Present: normocephalic - Routine Respiratory Exam Present: CTA bilaterally. Absent: accessory muscle use - Routine Cardiovascular Exam Present: RRR - Routine Abdominal Exam Present: soft, normoactive bowel sounds. Absent: tenderness, distended - Routine Skin Exam Present: dry, warm. Absent: pallor - Routine Neurological Exam Present: alert, oriented X3 Results - Labs CBC & Chem 7: 10/13/18 06:07 10/13/18 06:07 Laboratory Results - last 24 hr 10/12/18 10/13/18 10/13/18 17:09 06:07 06:07 WBC 4.2 RBC 2.50 L Hgb 8.6 L Hct 24.4 L MCV 97.7 D MCH 34.6 H MCHC 35.4 RDW 19.6 H Plt Count 89 L MPV 8.3 Sodium 142 Potassium 3.5 Chloride 110 H Carbon Dioxide 24.3 Anion Gap 8 BUN 10 Creatinine 0.86 Estimated GFR 88 L POC Glucose 109 Random Glucose 109 H Calcium 7.5 L Total Bilirubin 1.0 AST 33 ALT 33 Alkaline Phosphatase 61 Total Protein 5.1 L Albumin 2.7 L - Imaging Impressions Abdomen/Pelvis CT 10/12/18 11:51 CONCLUSION: 1. 2.6 cm intraluminal mass recently biopsied. No extravasation of contrast outside the stomach or duodenum. Assessment and Plan (1) GI bleed Status: Acute Code(s): K92.2 - Gastrointestinal hemorrhage, unspecified - Plan Patient is a pleasant 68-year-old male with past medical history significant for hypertension, hyperlipidemia, COPD and coronary artery disease, [place] with stent placement 2016. Patient presented to [facility] emergency room post syncopal episode last evening. Patient states he was sitting at the dinner table with his when he suddenly had a syncopal event, fell from chair and hit head sustaining a small laceration to right brow. CT head with no acute findings. CT C-spine negative. Patient was found to be Hemoccult positive on arrival and is currently on a Protonix drip. Patient does endorse 3 -4 days of black tarry stools with generalized weakness. Patient endorses that he takes aspirin 81 mg p.o. daily. Troponin less than 0.02. Hemoglobin 11.9 hematocrit 34 on arrival--this a.m. hemoglobin 9.5 hematocrit 27. 12-lead normal sinus rhythm without obvious ischemic change noted. Of note, patient's alcohol level was 139 on arrival. During consult, patient awake alert oriented and is currently on CIWA protocol. Patient states that he takes Zantac occasionally for heartburn. He denies dysphagia or odynophagia. Denies any known family history for gastrointestinal diseases. Patient denies tobacco use, states he quit smoking cigarettes 6 months ago. Patient does admit to drinking 2-3 alcoholic beverages that include bourbon daily with dinner. Chart review reveals patient admits to taking some [id number]-snukggh medication for sexual performance enhancement, patient unable to recall name of the medication. Patient denies use of NSAIDs other than above-noted aspirin. Denies any past history of having had an EGD. Does report last colonoscopy done in May 2018 in [place] which revealed polyps and no other remarkable findings per patient. Our service has been consulted to evaluate patient for GI bleed GI [id number]-[id number] endorses 3 days of black tarry stools with generalized weakness. States he takes aspirin 81 mg p.o. daily and denies use of other NSAIDs. Hemoglobin 11.9 hematocrit 34 on arrival. This a.m. hemoglobin 9.5 hematocrit 27. 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 No extravasation of contrast outside the stomach or duodenum. Plan -Clear liquid diet -Continue PPI -Await biopsies -Repeat EGD in 2 months -Monitor for active bleeding -Transfuse as needed -Monitor hemoglobin and hematocrit closely -From GI standpoint recommend an additional 24-hour observation -Supportive care -Further recommendations to follow This patient has been seen by myself and Dr. Maza and this note is written on his behalf - Attending Attestation Dr. Maaz
[2018-10-13 14:30] LABS: Hematocrit 28.4 % (39.0-51.0); Hemoglobin 9.9 gm/dL (13.0-17.0)
[2018-10-14] MEDS: Chlorhexidine Gluconate 2% 1 Pack (2 Cloths) TOPICAL SCH (04:34)
[2018-10-14 05:52] VITALS: O2SAT 95
[2018-10-14] MEDS: KCL 20 mEq/D5W/NaCl 0.45% Inj 1,000 ML IV.SIG SCH (05:52)
[2018-10-14 06:08] LABS: Baso % (Auto) 0.5 % (0.0-2.0); Eos # (Auto) 0.1 th/mm3 (0.0-0.4); Eos % (Auto) 2.9 % (0.0-4.0); Hematocrit 25.5 % (39.0-51.0); Hemoglobin 9.1 gm/dL (13.0-17.0); Lymph # (Auto) 0.9 th/mm3 (1.0-4.8); Lymph % (Auto) 20.6 % (9.0-44.0); Mean Corpuscular HGB Conc 35.7 % (32.0-36.0); Mean Corpuscular Hemoglobin 35.2 pg (27.0-34.0); Mean Corpuscular Volume 98.7 fL (80.0-100.0); Mean Platelet Volume 8.4 fL (7.0-11.0); Mono # (Auto) 0.4 th/mm3 (0.0-0.9); Mono % (Auto) 8.7 % (0.0-8.0); Neut # (Auto) 2.9 th/mm3 (1.8-7.7); Neut % (Auto) 67.3 % (16.0-70.0); Platelet Count 102 th/mm3 (150-450); Red Blood Count 2.58 mil/mm3 (4.50-5.90); Red Cell Distribution Width 19.1 % (11.6-17.2); White Blood Count 4.4 th/mm3 (4.0-11.0)
[2018-10-14] MEDS: Lactobacillus Acidophilus/L. Spores Tablet PO SCH (08:25)
[2018-10-14] MEDS: Multivitamin/Minerals Therapeutic Tablet PO SCH (08:25)
[2018-10-14] MEDS: Metoprolol Tartrate 25 MG Tablet PO SCH (08:26)
[2018-10-14] MEDS: Senna/Docusate Sodium 8.6/50 MG Tablet PO SCH (08:26)
[2018-10-14] MEDS: Folic Acid 1 MG Tablet PO SCH (08:26)
[2018-10-14] MEDS: Tiotropium Bromide 18 MCG/ACT Inhaler INH SCH (08:30)
[2018-10-14] MEDS: Sucralfate 1 GM Tablet PO SCH (08:32)
--- NOTE | 2018-10-14 09:06 | P.DS ---
DS: Providers Date of admission: 10/11/18 22:40 Primary care physician: UNKNOWN Consults: 10/10/18 00:19 Consult to Gastroenterology Routine Consulting Provider: Jerry Maza V Reason for Consultation: GI Bleed CONSULT FOR AM Notified:: Service Spoke with:: Jake Date Notified:: 10/10/18 Time Notified:: 00:32 Ordering Provider: REID 10/10/18 00:24 HUB Only Consult Order Routine Consulting Provider: Elizabeth Johnson Brief History from admission: This is a 68-year-old male with a PMH of HTN, Hyperlipidemia, COPD and h/o CAD who was brought to the ER by EMS after syncopal event witnessed by . Pt states he's been having dizziness for approx 3 days. Tonight, was sitting w/ having dinner when he had sudden onset syncopal event, +head trauma. Denies chest pain or SOB. Does note recent episodes of black, tarry stools for several days. On ASA. On arrival, BP 103/51, HR 80, O2 sat 100% on RA, Afebrile. Hgb 11.9, previously 13.0 on . INR 1.2. [place] 1.56, previously 1.01 on 09/02/2018. Troponin negative. Alcohol 139. CT Head with no acute findings. CT C-spine negative. Hemoccult + in ER, currently on Protonix gtt. DS: Diagnosis Discharge Diagnosis (1) Syncope: Status: Acute (2) GI bleed: Status: Acute (3) MADELEINE (acute kidney injury): Status: Acute DS: Summary This is a 68-year-old male with a PMH of HTN, Hyperlipidemia, COPD and h/o CAD who was brought to the ER by EMS after syncopal event witnessed by . He reported dizziness for 3 days prior to this admission. He also reported black tarry stools for several days. Patient is on aspirin at home. On arrival his hemoglobin was 11.9, previously 13.0 in August 2018. He was also found to have a creatinine 1.56, previously 1.01 in August 2018. Hemoccult was positive. Acute Syncope -Likely secondary to dehydration/hypovolemia with GI bleeding. -CT head/C-spine reviewed with no acute findings -Echo 09/01/18 w/ EF 55-60% -Troponin negative, no complaints of chest pain -Orthostatic vital signs negative Acute GI blood loss symptomatic anemia -Large Gastric Ulcer and Esophagitis (EGD 10/10/2018) -Patient had a significant upper GI bleed on 10/11/2018 and rapid response activated. -EGD on 10/12/2018 shows Antral mass, antral ulcer within fistula with a visible vessel -Clip placement and cauterization performed on 10/12/2018. -Hemoglobin 11.9 on the day of admission 10/09/2018. Hemoglobin dropped to 7.4 on 10/11/2018 and required 2 units of transfusions. Hemoglobin dropped from 9.6 --> 8.6 --> 9.1 (10/14/2018) --> 9.8 (10/16/2018) Protonix twice daily p.o. and also start sucralfate. Diarrhea - patient reports ongoing diarrhea 3-4 times a day for a few months now -Cdiff negative -lactinex bid Acute kidney injury Creatinine improved from 1.56 to 0.86. Alcohol Use - 4 drinks/day -Alcohol level 139 upon arrival -MCV 109.6, likely chronic alcohol use -CIWA, Seizure Precautions, MVT/Thiamine/Folate replacement. Advised patient to not drink alcohol for at least several weeks. Hyperlipidemia Hypertension -continue patient's statin, losartan, HCTZ CAD: chronic, hx of stent x1 placed in May 2016 -no complaints of chest pain, troponin negative -holding aspirin due to GI bleed Continue metoprolol tartrate 12.5 mg twice daily. Full code. DVT Prophylaxis: teds/SCDs, Pharmacologic contraindication in light of GI Bleed Time Spent with Patient Total time spent providing and/or coordinating discharge services: Greater than 30 minutes Quality: VTE Deep Vein Thrombosis/Pulmonary Embolism Present on Admission: No Exam Narrative Exam Narrative: GENERAL: Alert, oriented x3, NAD. SKIN: Warm and dry. HEAD: Normocephalic. EYES: No scleral icterus. No injection or drainage. NECK: Supple, trachea midline. No JVD or lymphadenopathy. CARDIOVASCULAR: Regular rate and rhythm without murmurs, gallops, or rubs. RESPIRATORY: Breath sounds equal bilaterally. No accessory muscle use. GASTROINTESTINAL: Abdomen soft, non-tender, nondistended. MUSCULOSKELETAL: No cyanosis, or edema. BACK: Nontender without obvious deformity. No CVA tenderness. Results Pending studies at discharge: Pending at discharge 10/12/18 08:10 Surgical [PTH] Routine Labs on day of discharge: Labs from last 24 hours 10/14/18 10/14/18 10/14/18 05:18 04:45 00:05 WBC 4.4 RBC 2.58 L Hgb 9.1 L Hct 25.5 L MCV 98.7 MCH 35.2 H MCHC 35.7 RDW 19.1 H Plt Count 102 L MPV 8.4 Neut % (Auto) 67.3 Lymph % (Auto) 20.6 [place] % (Auto) 8.7 H Eos % (Auto) 2.9 Baso % (Auto) 0.5 Neut # (Auto) 2.9 Lymph # (Auto) 0.9 L [place] # (Auto) 0.4 Eos # (Auto) 0.1 Baso # (Auto) 0.0 WBC Differential . Differential Comment Auto diff final POC Glucose 124 H 144 H 10/13/18 10/13/18 10/13/18 17:30 13:53 13:52 WBC RBC Hgb 9.9 L Hct 28.4 L MCV MCH MCHC RDW Plt Count MPV Neut % (Auto) Lymph % (Auto) [place] % (Auto) Eos % (Auto) Baso % (Auto) Neut # (Auto) Lymph # (Auto) [place] # (Auto) Eos # (Auto) Baso # (Auto) WBC Differential Differential Comment POC Glucose 118 H 139 H Impressions ITS Impressions Cervical Spine CT 10/09/18 23:03 CONCLUSION: 1. No fracture or dislocation. 2. Mild degenerative changes. 3. Calcified plaque involving the carotid arteries. Head CT 10/09/18 23:03 CONCLUSION: 1. No acute intracranial abnormality. . . Abdomen/Pelvis CT 10/12/18 11:51 CONCLUSION: 1. 2.6 cm intraluminal mass recently biopsied. No extravasation of contrast outside the stomach or duodenum. Discharge Plan Discharge Disposition Patient Disposition: 01 Discharge Home Discharge Condition Condition: Good Discharge Order Discharge Orders: Discharge Order (Routine); Ordered 10/14/18 Ordered By: Brian Farr Discharge Details Anticipated Discharge Date: 10/13/18 Discharge Comment: Discharge after attending rounds on patient on 10/14/2018. Physicians Team Primary Care Provider: UNKNOWN, Attending Provider: Brian Farr Other Providers: Jerry Maza V ; Elizabeth Johnson Rxs /Orders / Referrals /Forms Prescriptions: New pantoprazole 40 mg Tablet,Delayed Release (Dr/Ec) 40 mg PO BID Qty: 60 RF: 0 sucralfate 1 gram Tablet 1 g PO ACHS Qty: 90 RF: 0 Continue atorvastatin 40 mg Tablet 40 mg PO QPM RF: 0 isosorbide mononitrate 60 mg Tablet Extended Release 24 Hr 60 mg PO QAM RF: 0 albuterol sulfate 90 mcg/actuation Hfa Aerosol Inhaler 2 puff INHALATION QID RF: 0 losartan-hydrochlorothiazide 50-12.5 mg Tablet 1 tab PO DAILY RF: 0 metoprolol tartrate 25 mg Tablet 12.5 mg PO DAILY RF: 0 tiotropium bromide 18 mcg Capsule, W/Inhalation Device 1 cap INHALATION DAILY RF: 0 Discontinued aspirin 81 mg Tablet,Chewable 81 mg PO DAILY RF: 0 Ambulatory Orders / Order Sets / DME: Complete Blood Count with Diff (Routine) Timeframe: 2 Days Location: Determined by Patient Ordered By: Rafaela Hernandez Referrals: [facility] [Provider Group] - See Instructions UNKNOWN, [Primary Care Provider] - See Instructions Discharge Instructions Patient Printed Instructions: Sucralfate (By mouth), Pantoprazole (By mouth), Gastrointestinal Bleeding (DC) Post Discharge Care Plan Care Plan Goals: Your Health Problems: GI bleed Goals to Promote Your Health: * To prevent worsening of your condition * To maintain your health at the optimal level Directions to Meet Your Goals: * Take your medications as prescribed * Follow your dietary instruction * Follow activity as directed * Keep your appointments as scheduled * Take your immunizations and boosters as scheduled * If your symptoms worsen call your PCP * If no PCP go to Urgent Care or Emergency Room Smoking is dangerous to your health. Avoid second hand smoke. You may reach the 24-hour crisis hotline for domestic abuse at . Status ED Status: Left Department Discharge Information Discharge Date/Time: 10/14/18 11:10
[2018-10-14 09:12] VITALS: BP 127/62; RESP 18; TEMP 98.1
[2018-10-14 10:54] VITALS: PULSE 70
== END 2018-10-14 11:10 | disposition home or self-care (01) | DRG 378 ==
LOC: NEDA 22:25 → NEPE 22:25 → NEDA 10-10 01:26 → NEPGCP 10-10 01:44 → HIMC 10-11 23:50 → N04 10-13 19:46
PROVIDERS: ADMIT Hospitalist; ATTEND Hospitalist
PROC: PANENDO (2018-10-10 12:53)
DX: Z23 Encounter for immunization; Z95.5 Presence of coronary angioplasty implant and graft; K29.70 Gastritis, unspecified, without bleeding; Y90.6 Blood alcohol level of 120-199 mg/100 ml; F10.10 Alcohol abuse, uncomplicated; Z86.010 Personal history of colon polyps; I10 Essential (primary) hypertension; I25.2 Old myocardial infarction; K25.4 Chronic or unspecified gastric ulcer with hemorrhage; D62 Acute posthemorrhagic anemia; K20.9 Esophagitis, unspecified; J44.9 Chronic obstructive pulmonary disease, unspecified; E86.0 Dehydration; R40.2412 Glasgow coma scale score 13-15, at arrival to emergency department; K52.9 Noninfective gastroenteritis and colitis, unspecified; I95.9 Hypotension, unspecified; N17.9 Acute kidney failure, unspecified; E86.1 Hypovolemia; E78.5 Hyperlipidemia, unspecified; I25.10 Atherosclerotic heart disease of native coronary artery without angina pectoris; R55 Syncope and collapse; M54.9 Dorsalgia, unspecified; K92.0 Hematemesis; M54.2 Cervicalgia; Z79.82 Long term (current) use of aspirin
CPT/HCPCS: 12011; 36430; 70450; 72125; 74177; 80048; 80053; 80307; 81001; 82040; 82948; 82962; 83690; 84484; 85014; 85018; 85025; 85027; 85610; 85730; 86850; 86900; 86901; 86923; 87493; 87506; 87641; 88305; 88312; 90471; 90702; 90714; 90718; 90765; 90775; 93005; 96361; 96365; 96372; 96375; 97161; 99285; C9113; G0378; G8987; G8988; J0171; J2250; J2370; J2704; J3010; J3480; J7030; P9016; Q9963; Q9967